=== PATIENT | male | born 1955 | race Caucasian/White ===

== ENCOUNTER 2016-08-12 16:18 | Emergency (ER) | payer OTHER ==
[2016-08-12 16:45] VITALS: BP 149/84
[2016-08-12] MEDS ORDERED: Ketorolac INJ* 60 MG/2 ML VIAL IM ONE (17:59)
--- NOTE | 2016-08-12 18:16 | RAD ---
Indication: Elbow pain and stiffness. 4 views of the right elbow demonstrates anterior fat pad sign suggestive of a joint effusion. No definite fracture is identified although visualization is suboptimal. IMPRESSION: Suboptimal positioning however joint effusion is noted. No definite fractures identified.
[2016-08-12] MEDS ORDERED: Cephalexin CAP* 500 MG PO ONE (18:41)
--- NOTE | 2016-08-12 19:11 | UC ---
Elbow Pain - HPI Summary HPI Summary: THREE DAYS OF TENDERNESS WARMTH AND SWELLING OF RIGHT ELBOW. ELBOW HAD BEEN PROPPED UP LAST WEEK DURING COLONOSCOPY, BUT HAD ALSO BEEN WORKING HEAVILY THIS WEEK WITH POWER TOOLS. ION KNOWN TRAUMA. NO HISTORY OF GOUT. - History of Current Complaint Chief Complaint: UCUpperExtremity Stated Complaint: ELBOW PAIN Time Seen by Provider: 08/12/16 16:52 Hx Obtained From: Patient Onset/Duration: Days Severity Initially: Mild Severity Currently: Moderate Pain Intensity: 0 Pain Scale Used: 0-10 Numeric Location Of Pain: Is Discrete @ - RIGHT ELBOW Character: Dull, Aching, Stiffness Aggravating Factor(s): Movement Alleviating Factor(s): Rest, Ice, Immobilization Associated Signs And Symptoms: Positive: Swelling, Redness, Fever. Negative: Bruising, Weakness, Numbness/Tingling - Allergies/Home Medications Allergies/Adverse Reactions: Allergies Allergy/AdvReac Type Severity Reaction Status Date / Time No Known Allergies Allergy Verified 08/12/16 16:45 PMH/Surg Hx/FS Hx/Imm Hx Previously Healthy: Yes Endocrine History Of: Denies: Diabetes Cardiovascular History Of: Reports: Hypertension - ON MEDS Denies: Pacemaker/ICD - Surgical History Surgical History: None - Family History Known Family History: Negative: Diabetes, Other - NO HISTORY OF GOUT - Social History Occupation: Employed Full-time Lives: With Family Alcohol Use: Rare Substance Use Type: None Smoking Status (MU): Never Smoked Tobacco Review of Systems Constitutional: Fever Skin: Negative Eyes: Negative ENT: Negative Respiratory: Negative Cardiovascular: Negative Gastrointestinal: Negative Genitourinary: Negative Motor: Negative Neurovascular: Negative Musculoskeletal: Arthralgia, Edema - MILD RIGHT ELBOW, Myalgia, Other: - WARMTH RIGHT ELBOW Neurological: Negative Psychological: Negative All Other Systems Reviewed And Are Negative: Yes Physical Exam Triage Information Reviewed: Yes Appearance: Well-Appearing, Well-Nourished, Pain Distress - MILD Vital Signs: Initial Vital Signs Temp 100.5 F 08/12/16 16:40 Pulse 91 08/12/16 16:40 Resp 18 08/12/16 16:40 BP 149/84 08/12/16 16:40 Pulse Ox 96 08/12/16 16:40 Vital Signs Reviewed: Yes Eye Exam: Normal ENT Exam: Normal ENT: Positive: Normal ENT inspection, Hearing grossly normal, Pharynx normal, TMs normal Dental Exam: Normal Neck exam: Normal Neck: Positive: Supple, Nontender, No Lymphadenopathy Respiratory Exam: Normal Respiratory: Positive: Chest non-tender, Lungs clear, Normal breath sounds, No respiratory distress, No accessory muscle use Cardiovascular Exam: Normal Cardiovascular: Positive: RRR, No Murmur Abdominal Exam: Normal Musculoskeletal Exam: Normal Musculoskeletal: Positive: Strength Limited @ - RIGHT ELBOW, ROM Limited @ - RIGHT ELBOW, Edema @ - MILD RIGHT ELBOW, Other: - WARMTH RIGHT ELBOW; NO TENDERNESS OR SWELLING OF BURSA Neurological Exam: Normal Psychological Exam: Normal Psychological: Positive: Normal Response To Family Skin Exam: Normal Elbow Pain Course/Dx - Differential Dx/Diagnosis Differential Diagnosis/HQI/PQRI: Bursitis, Cellulitis, Fracture (Closed), Joint Effusion, Other - SEPTIC JOINT Provider Diagnoses: RIGHT ELBOW JOINT EFFUSION Discharge - Discharge Plan Condition: Stable Disposition: HOME Prescriptions: Cephalexin CAP* [Keflex CAP*] 500 mg PO QID #40 cap Patient Education Materials: Swollen Joint (ED) Forms: *Work Release Referrals: Kristofer Lane MD [Medical Doctor] - Evens Paul MD [Primary Care Provider] - Images Front/Back of Body, Lg ([place]): 1 - TENDER HERE 2 - TENDER HERE
== END 2016-08-12 18:57 | disposition home or self-care (01) ==
LOC: UCEAST 16:18
DX: M25.421 Effusion, right elbow (principal); I10 Essential (primary) hypertension
CPT/HCPCS: 99213; A9270-GY; G0463; J1885

== ENCOUNTER 2017-07-04 07:30 | Emergency (ER) | payer OTHER ==
[2017-07-04 08:24] LABS: ABS Basophils 0.2 10^3/ul (0-0.2); ABS Eosinophils 0.2 10^3/ul (0-0.6); ABS Lymphocytes 1.6 10^3/ul (1.0-4.8); ABS Monocytes 1.2 10^3/ul (0-0.8); ABS Neutrophils 9.9 10^3/ul (1.5-7.7); ABS Nucleated RBC 0 10^3/ul; Eosinophil % 1.9 % (0-6); Hematocrit 40 % (42-52); Hemoglobin 13.7 g/dl (14.0-18.0); Lymphocyte % 11.9 % (25-47); Mean Corpuscular HGB Conc 35 g/dl (31-36); Mean Corpuscular Hemoglobin 29 pg (27-31); Mean Corpuscular Volume 83 fL (80-94); Mean Platelet Volume 8 um3 (7.4-10.4); Nucleated Red Blood Cells % 0; Platelet Count 263 10^3/ul (150-450); Red Cell Distribution Width 14 % (10.5-15); White Blood Count 13.1 10^3/ul (3.5-10.8)
[2017-07-04 08:44] LABS: EGFR Non-African American 69.8 (>60)
--- OUTSIDE RECORDS SUMMARY | 2017-07-04 09:04 | XMS REPORT ---
:1955 External Reference #:[id number] Author Organization [facility] Address [address] [place] [address] Phone [phone] Care Team Providers Name Role Phone Evens Paul MD Care Team Information Chief Ii Dispatcher Unavailable Evens Paul MD Primary Care Physician Unavailable Payers Type Date Identification Numbers Payment Provider Subscriber Commercial Effective: Policy Number: [id number] [employer] Mercedes 2010 PayID: [id number] [place] [address] Problems Date Description Provider Status Onset: 02/12/2012 Adult health examination Evens Paul M.D. Active Onset: 03/25/2012 Benign essential hypertension Evens Paul M.D. Active Onset: 04/23/2012 Cellulitis and abscess of buttock Evens Paul M.D. Active Onset: 11/06/2012 Acute maxillary sinusitis John Crain M.D. Active Onset: 05/08/2013 Eruption Evens Paul M.D. Active Onset: 08/10/2014 Arthralgia of the ankle and/or foot Evens Paul M.D. Active Onset: 08/30/2015 Essential hypertension Evens Paul M.D. Active Onset: 03/08/2017 Cellulitis of periorbital region Evens Paul M.D. 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 three a day x 5 days Patanol 11/20 Active Solution 0.1% 5unit 1 drop in s both eyes Liset, twice a FOOD SERVICE CASHIER day as needed Viagra 11/20 Active Tablets 50mg 14tab 1 by mouth F52.21 s 45 minutes Liset, prior to [employer]OD SERVICE CASHIER sexual relations Sample Simvastatin 09/11 Active Tablets 20mg 90tab Take 1 Evens Pedraza s Tablet By Beverly Mouth M.D. Every Day Desoximetasone 08/10 Active Cream 0.25% 60gm use as Evens Pedraza directed josep Paul M.D. affected areas. Montelukast 06/15 Active Tablets 10mg 90tab take 1 Evens Pedraza Sodium s tablet by Beverly mouth M.D. every day Hydrochlorothiazi 02/11 Active Capsules 12.5mg 90cap take one Evens Pedraza de s capsule by Beverly mouth M.D. every day Proair HFA 08/29 Active Aerosol 108(90Bas 25.5g use 2 /2010 e) m puffs Sahil, mcg/Act every 4 [employer] SERVICE C[employer]IER hours as needed Centrum Ultra 00/00 Active Tablets daily Unknown Mens /0000 Keflex 03/08 Hx Capsules 500mg 30cap 1 by mouth Evens Pedraza /2016 s tid Aretha Paul M.D. 06/14 Amoxicillin 12/17 Hx Tablets 500mg 20tab 1 by mouth Evens Pedraza s twice a Beverly, - day M.D. 03/05 Amoxicillin 10/03 Hx Tablets 500mg 20tab 1 by mouth Evens Pedraza s twice a Beverly, - day M.D. 10/02 Doxycycline 08/10 Hx Capsules 100mg 20cap use 1bid Evens Ba s Aretha Paul M.D. 06/06 Amoxicillin 12/29 Hx Tablets 875mg 20tab 1 by mouth 461.9 Wallace Soto, /2013 s twice a M.D. - day for 10 Topicort 06/19 Hx Cream 0.25% 45uni rub in Evens Pedraza /2013 ts sparingly Beverly, - bid prn M.D. 08/09 Doxycycline 06/19 Hx Capsules 100mg 42cap use 1bid Evens Ba /2013 s Aretha Paul M.D. 12/29 Triamcinolone 05/08 Hx Cream 0.1% 15gm apply Q.D Evens Pedraza Acetonide Aretha PaulDRadha 06/19 Ceftin 02/06 Hx Tablets 500mg 20tab 1 po bid Evens Pedraza /2012 Aretha Farias M.D. 06/19 Bactroban 02/06 Hx Cream 2% 15uni use as Evens Pedraza /2012 ts directed Beverly, - bid M.D. 06/19 Amoxicillin 11/06 Hx Tablets 875mg 14tab 1 po bid 461.0 John Tolbert /2012 Aretha Mccauley M.D. 11/13 Doxycycline 05/13 Hx Tablets 100mg 28tab 1 po bid x Evens Ba /2012 s 14 days Aretha Paul M.D. 11/06 Naprosyn 05/06 Hx Tablets 500mg 20tab 1 bid with Evens Pedraza /2012 s food Aretha Paul M.D. 06/19 Doxycycline 04/23 Hx Capsules 100mg 20cap use 1bid Evens Ba /2012 s Aretha Paul M.D. 05/06 Proair HFA 05/10 Hx Aerosol 108(90Bas 2unit 2 puffs Evens Pedraza e) mcg/ac s q4h prn Aretha PaulDRadha 02/11 Proair HFA 05/10 Hx Aerosol 108(90Bas 2unit Use 2 Evens Pedraza e) mcg/ac s Puffs Beverly, - Every 4 M.DRadha 11/12 Hours Needed Proair HFA 09/29 Hx Aerosol 108mcg/Ac 2unit 2 puffs Evens Pedraza t s q4h prn Aretha Paul M.D. 08/29 Claritin 09/29 Hx Capsules 10mg 30cap 1 po qd [facility] /2009 Singulair 09/29 Hx Tablets 10mg 30tab take 1 Wallace Soto, s tablet by [place].Fatmata - mouth 08/09 every day Augmentin 06/12 Hx Tablets 500mg 20tab 1 po bid 461.9 Maggy s with food Sahil, - x 10 days [employer]OD SERVICE [employer]IER 09/29 Duricef 02/10 Hx Capsules 500mg 20cap 1 PO bid 709.8 John Tolbert /2006 Aretha Mccauley M.D. 02/20 Amoxicillin 04/24 Hx Capsules 250mg 30cap 1 po tid Evens Pedraza /2006 s Aretha Paul M.D. 02/10 Albuterol Inhaler 03/20 Hx 1unit 2 puffs Evens Pedraza s qid prAertha Gomes M.D. 09/29 Augmentin XR 06/14 Hx 1000mg as directed Domingo, - FOOD SERVICE CASHIER-C 03/20 Singulair 06/14 Hx 10mg qd Tamanna R Domingo, - FOOD SERVICE CASHIER-C 03/20 Clarinex 06/14 Hx 5mg 30uni 1 qd prn Tamanna R s[address], - FOOD SERVICE CASHIER-C 03/20 medicaid auth #[id number] Rhinocort Aqua 06/14 Hx Inhaler 1unit 1 spray in Tamanna s [address], - nostril qd [employer] SERVICE CASHIER-C 03/20 Robitussin ac 06/14 Hx Liq 4Oz 2-1 tsp Tamanna po q4hs Domingo, - prn cough FOOD SERVICE CASHIER-C 03/05 Doxycycline 05/31 Hx 100mg 20uni 1 PO bid Víctor Benedict /1998 Aretha Adam M.D. 06/10 Immunizations CPT Code Status Date Vaccine Lot # [id number] Given 08/30/2015 Zostivax [id number] Given 08/30/2015 Tdap Tetanus, W Pertussis [id number] Given 03/03/2013 DO Not Use Split Influenza Virus Vaccine [id number] Given 05/06/2012 DO Not Use Split Influenza Virus Vaccine [id number] Given 03/05/2006 Tetanus And Diptheria Adult Preservative Free [id number] >7Yrs Vital Signs Date Vital Result Comment 06/14/2017 BP Systolic 120 mmHg BP Diastolic 68 mmHg Heart Rate 68 /min Body Temperature 98.2 F Respiratory Rate 18 /min Height 67 inches 5'7" Weight 205.00 lb BMI (Body Mass Index) 32.1 kg/m2 03/08/2017 BP Systolic 148 mmHg BP Diastolic 82 mmHg Heart Rate 84 /min Body Temperature 98.6 F Height 67 inches 5'7" Weight 209.00 lb BMI (Body Mass Index) 32.7 kg/m2 03/05/2017 BP Systolic 150 mmHg BP Diastolic 82 mmHg Heart Rate 72 /min Body Temperature 98.6 F Height 67 inches 5'7" Weight 209.00 lb BMI (Body Mass Index) 32.7 kg/m2 12/17/2016 BP Systolic 120 mmHg BP Diastolic 80 mmHg Heart Rate 76 /min Body Temperature 99.0 F Respiratory Rate 18 /min Height 67 inches 5'7" Weight 207.00 lb BMI (Body Mass Index) 32.4 kg/m2 11/20/2016 BP Systolic 142 mmHg BP Diastolic 86 mmHg Heart Rate 76 /min Body Temperature 99.0 F Height 67 inches 5'7" Weight 209.00 lb BMI (Body Mass Index) 32.7 kg/m2 10/02/2016 BP Systolic 144 mmHg BP Diastolic 80 mmHg Heart Rate 72 /min Body Temperature 98.6 F Respiratory Rate 18 /min Height 67 inches 5'7" Weight 209.00 lb BMI (Body Mass Index) 32.7 kg/m2 10/04/2015 BP Systolic 162 mmHg BP Diastolic 80 mmHg Heart Rate 82 /min Body Temperature 98.4 F Respiratory Rate 18 /min Height 67 inches 5'7" Weight 216.00 lb BMI (Body Mass Index) 33.8 kg/m2 08/30/2015 BP Systolic 140 mmHg BP Diastolic 80 mmHg Heart Rate 72 /min Body Temperature 97.9 F Respiratory Rate 18 /min Height 67 inches 5'7" Weight 214.00 lb BMI (Body Mass Index) 33.5 kg/m2 06/06/2015 BP Systolic 140 mmHg BP Diastolic 80 mmHg Heart Rate 68 /min Body Temperature 99.0 F Respiratory Rate 18 /min Height 67 inches 5'7" Weight 212.00 lb BMI (Body Mass Index) 33.2 kg/m2 08/10/2014 BP Systolic 132 mmHg BP Diastolic 70 mmHg Heart Rate 90 /min Body Temperature 96.7 F Respiratory Rate 16 /min Height 67 inches 5'7" Weight 211.25 lb BMI (Body Mass Index) 33.1 kg/m2 12/29/2013 BP Systolic 160 mmHg BP Diastolic 92 mmHg Heart Rate 90 /min Body Temperature 97.7 F Respiratory Rate 15 /min Height 67.75 inches 5'7.75" Weight 209.00 lb BMI (Body Mass Index) 32.0 kg/m2 06/19/2013 BP Systolic 160 mmHg BP Diastolic 90 mmHg Heart Rate 82 /min Body Temperature 98.2 F Respiratory Rate 18 /min Height 67.75 inches 5'7.75" Weight 215.00 lb BMI (Body Mass Index) 32.9 kg/m2 05/08/2013 BP Systolic 142 mmHg BP Diastolic 88 mmHg Heart Rate 84 /min Body Temperature 97.4 F Respiratory Rate 18 /min Height 67.75 inches 5'7.75" Weight 214.00 lb BMI (Body Mass Index) 32.8 kg/m2 03/03/2013 BP Systolic 140 mmHg BP Diastolic 80 mmHg Heart Rate 84 /min Body Temperature 98.2 F Respiratory Rate 16 /min Height 67.75 inches 5'7.75" Weight 210.00 lb BMI (Body Mass Index) 32.2 kg/m2 Right Visual Acuity Distance 20/20 with corrective lenses Left Visual Acuity Distance 20/20 with corrective lenses 02/06/2013 BP Systolic 146 mmHg BP Diastolic 70 mmHg Heart Rate 80 /min Body Temperature 98.4 F Respiratory Rate 16 /min Height 67.75 inches 5'7.75" Weight 209.00 lb BMI (Body Mass Index) 32.0 kg/m2 11/06/2012 BP Systolic 140 mmHg BP Diastolic 76 mmHg Heart Rate 84 /min Body Temperature 99.2 F Respiratory Rate 16 /min O2 % BldC Oximetry 98 % Height 67.75 inches 5'7.75" Weight 208.00 lb BMI (Body Mass Index) 31.9 kg/m2 05/06/2012 BP Systolic 164 mmHg BP Diastolic 90 mmHg Heart Rate 96 /min Body Temperature 99.5 F Height 67.75 inches 5'7.75" Weight 205.00 lb BMI (Body Mass Index) 31.4 kg/m2 04/23/2012 BP Systolic 128 mmHg BP Diastolic 84 mmHg Heart Rate 90 /min Body Temperature 99.2 F Height 67.75 inches 5'7.75" Weight 207.00 lb BMI (Body Mass Index) 31.7 kg/m2 03/25/2012 BP Systolic 130 mmHg BP Diastolic 70 mmHg Heart Rate 84 /min Body Temperature 98.8 F Height 67.75 inches 5'7.75" Weight 210.00 lb BMI (Body Mass Index) 32.2 kg/m2 02/12/2012 BP Systolic 160 mmHg BP Diastolic 100 mmHg Heart Rate 76 /min Body Temperature 97.2 F Height 67.75 inches 5'7.75" Weight 212.00 lb BMI (Body Mass Index) 32.5 kg/m2 08/29/2010 BP Systolic 140 mmHg BP Diastolic 86 mmHg Heart Rate 84 /min Height 67.75 inches 5'7.75" Weight 222.00 lb BMI (Body Mass Index) 34.0 kg/m2 08/10/2009 BP Systolic 150 mmHg BP Diastolic 84 mmHg Heart Rate 88 /min Height 67.75 inches 5'7.75" Weight 212.00 lb BMI (Body Mass Index) 32.5 kg/m2 01/18/2009 BP Systolic 160 mmHg BP Diastolic 82 mmHg Heart Rate 84 /min Height 67.75 inches 5'7.75" Weight 213.00 lb BMI (Body Mass Index) 32.6 kg/m2 09/29/2008 BP Systolic 142 mmHg BP Diastolic 82 mmHg Heart Rate 72 /min Height 67.75 inches 5'7.75" Weight 218.00 lb BMI (Body Mass Index) 33.4 kg/m2 06/12/2007 BP Systolic 126 mmHg BP Diastolic 80 mmHg Heart Rate 78 /min Body Temperature 98.9 F Respiratory Rate 14 /min Height 67.75 inches 5'7.75" Weight 222.00 lb BMI (Body Mass Index) 34.0 kg/m2 02/12/2007 BP Systolic 150 mmHg BP Diastolic 80 mmHg Heart Rate 76 /min Body Temperature 98.5 F Height 67.75 inches 5'7.75" Weight 217.00 lb BMI (Body Mass Index) 33.2 kg/m2 02/10/2007 BP Systolic 144 mmHg BP Diastolic 70 mmHg Heart Rate 84 /min Body Temperature 98.2 F Height 67.75 inches 5'7.75" Weight 217.00 lb BMI (Body Mass Index) 33.2 kg/m2 04/24/2006 BP Systolic 148 mmHg BP Diastolic 88 mmHg Heart Rate 84 /min Body Temperature 99.1 F Height 67.75 inches 5'7.75" Weight 217.00 lb BMI (Body Mass Index) 33.2 kg/m2 03/05/2006 BP Systolic 132 mmHg BP Diastolic 80 mmHg Heart Rate 78 /min Body Temperature 98.1 F Height 67.75 inches 5'7.75" Weight 214.00 lb BMI (Body Mass Index) 32.8 kg/m2 12/11/2005 BP Systolic 120 mmHg BP Diastolic 80 mmHg Heart Rate 74 /min Respiratory Rate 15 /min 03/20/2004 BP Systolic 138 mmHg BP Diastolic 84 mmHg Heart Rate 132 /min Body Temperature 98.9 F Weight 198.00 lb 06/14/2003 BP Systolic 138 mmHg BP Diastolic 88 mmHg Heart Rate 70 /min Body Temperature 97.6 F Weight 205.00 lb 05/31/1998 BP Systolic 120 mmHg BP Diastolic 86 mmHg Body Temperature 98.2 F Weight 200.00 lb Results Test Date Test Result H/L Range Note Laboratory test finding 03/08/2017 Wound SEE RESULT BELOW 1 Culture/Sensi Laboratory test finding 10/02/2016 HCV Antibody 0.1 s/coratio 0.0-0.9 2 , 3 Comprehensive Metabolic 10/02/2016 Sodium 138 mEq/L 134-149 Prof Potassium 4.1 mEq/L 3.6-5.5 Chloride 98 mEq/L 94-112 Carbon Dioxide 28 mEq/L 21-32 Glucose 105 mg/dL 70-105 BUN 15 mg/dL 6-26 Creatinine 1.1 mg/dL 0.6-1.4 BUN/Creat Ratio 13.6 CALC 8.0-36.0 Calcium 9.1 mg/dL 8.6-10.2 Total Protein 6.5 g/dL 6.4-8.3 Albumin 4.4 g/dL 3.8-5.5 Globulin 2.1 g/dL 2.0-4.8 A/G Ratio 2.1 CALC 0.6-2.3 Alk. Phosphatase 60 U/L 22-95 Alt (SGPT) 26 U/L 7-35 Ast (Sgot) 27 U/L 5-34 Total Bilirubin 1.8 mg/dL High 0.2-1.3 4 GFR Non- >60 ml/min/1.73m^ >=60 GFR >60 ml/min/1.73m^ >=60 Lipid Profile 10/02/2016 Cholesterol 138 mg/dL 120-200 Triglycerides 78 mg/dL 30-200 HDL Cholesterol 41 mg/dL 30-70 LDL (Calculated) 81 CALC 0-129 VLDL Cholesterol 16 mg/dL 0-50 HDL Risk Factor 3.4 CALC 0.0-4.4 Complete Blood Count 10/02/2016 WBC 6.1 x10^3/UL 3.6-9.6 RBC 4.93 x10^6/UL 3.90-5.70 HGB 14.5 g/dL 12.1-17.2 HCT 43 % 36-50 MCV 87.0 fL 82.2-97.4 MCH 29.4 pg 27.6-33.3 MCHC 33.7 g/dL 33.0-35.5 RDW 14.2 % High 11.6-13.7 PLT 190 x10^3/UL 150-400 MPV 7.4 fL 7.4-10.4 Gran # 4.1 x10^3/UL 1.5-7.2 Lymph# 1.7 x10^3/UL 0.7-4.9 Hamlin# 0.3 x10^3/UL 0.1-0.9 Gran % 66.0 % 42.2-75.2 Lymph % 28.6 % 20.5-51.1 [place]lin% 5.4 % 1.7-9.3 Laboratory test finding 10/02/2016 PSA 1.0 ng/mL 0.0-4.0 Uric Acid 8.9 mg/dL 2.5-9.2 Lipid Profile 11/23/2015 Cholesterol 149 mg/dL 120-200 Triglycerides 93 mg/dL 30-200 HDL Cholesterol 42 mg/dL 30-70 LDL (Calculated) 88 CALC 0-129 VLDL Cholesterol 19 mg/dL 0-50 HDL Risk Factor 3.5 CALC 0.0-4.4 Hepatic 11/23/2015 Total Protein 6.9 g/dL 6.4-8.3 Albumin 4.5 g/dL 3.8-5.5 Globulin 2.4 g/dL 2.0-4.8 A/G Ratio 1.9 CALC 0.6-2.3 Alk. Phosphatase 59 U/L 22-95 Alt (SGPT) 30 U/L 7-35 Ast (Sgot) 26 U/L 5-34 Total Bilirubin 2.1 mg/dL High 0.2-1.3 5 Direct Bilirubn 0.6 mg/dL 0.0-0.6 Indirect Bilirubin 1.50 mg/dL High 0.10-1.00 Ua - Non Micro (a) 08/30/2015 Appearance clear Color yellow Glucose, Urine (a/[facility]/CTX) neg Bilirubin neg Ketones neg SP Grav 1.015 Blood neg PH 7.5 Protein neg Urobil 0.2 Nitrite neg Leukocytes ([facility]/Centrex) neg Comprehensive Metabolic Prof 08/30/2015 Sodium 139 mEq/L 134-149 Potassium 4.1 mEq/L 3.6-5.5 Chloride 102 mEq/L 94-112 Carbon Dioxide 27 mEq/L 21-32 Glucose 115 mg/dL High 70-105 6 BUN 12 mg/dL 6-26 Creatinine 1.0 mg/dL 0.6-1.4 BUN/Creat Ratio 12.0 CALC 8.0-36.0 Calcium 9.5 mg/dL 8.6-10.2 Total Protein 7.1 g/dL 6.4-8.3 Albumin 4.4 g/dL 3.8-5.5 Globulin 2.7 g/dL 2.0-4.8 A/G Ratio 1.6 CALC 0.6-2.3 Alk. Phosphatase 61 U/L 22-95 Alt (SGPT) 28 U/L 7-35 Ast (Sgot) 25 U/L 5-34 Total Bilirubin 1.3 mg/dL 0.2-1.3 GFR Non- >60 ml/min/1.73m^ >=60 GFR >60 ml/min/1.73m^ >=60 Lipid Profile 08/30/2015 Cholesterol 226 mg/dL High 120-200 Triglycerides 148 mg/dL 30-200 HDL Cholesterol 34 mg/dL 30-70 LDL (Calculated) 162 CALC High 0-129 VLDL Cholesterol 30 mg/dL 0-50 HDL Risk Factor 6.6 CALC High 0.0-4.4 Laboratory test finding 06/09/2015 Uric Acid 8.3 mg/dL 2.5-9.2 Rheumatoid Arthritis 06/09/2015 Ra Latex Turbid. 9.1 IU/mL 0.0-13.9 7 Factor ([facility]) Laboratory test finding 06/09/2015 Antinuclear Antibodies, Negative 7, 8 Ifa Laboratory test finding 06/09/2015 Hla B 27 Disease Negative 7, 9 Association CCP Abs Igg/Iga 06/09/2015 CCP Antibodies IgG/IgA 2 units 0-19 7, 10 CBC Electronic (a) 06/06/2015 WBC 9.5 3.6-9.6 RBC 5.17 3.90-5.70 Hemoglobin ([facility]/CTX) 15.1 g/dL 12.1 - 17.2 Hematocrit ([facility]ma/CMC/CTX) 45.6 % 36.1 - 50.3 Platelets 206 10^3/ul 150-400 Lymph% 23.2 % 17.0-48.0 Mixed% 5.4 Neutrophils % 71.4 Mean Corpuscular Vol 88 82.2-97.4 Mean Corpuscular Hemoglobin 29.2 27.6-33.3 Mean Corpuscular Hemo Concen 33.0 32.0-36.0 RDW 13.4 11.6-13.7 Mean Platelet Volume 6.8 5.5-11.0 Laboratory test finding 06/06/2015 C-Reactive Protein, Quant 47.0 mg/L High 0.0-4.9 11 Laboratory test finding 06/06/2015 Sedimentation Rate 21mm Lyme, Western Blot, 06/06/2015 IgG P93 Ab. Present 11 Serum IgG P66 Ab. Absent 11 IgG P58 Ab. Absent 11 IgG P45 Ab. Absent 11 IgG P41 Ab. Absent 11 IgG P39 Ab. Present 11 IgG P30 Ab. Absent 11 IgG P28 Ab. Absent 11 IgG P23 Ab. Absent 11 IgG P18 Ab. Absent 11 Lyme IgG WB Interp. Negative 11, 12 IgM P41 Ab. Absent 11 IgM P39 Ab. Absent 11 IgM P23 Ab. Absent 11 Lyme IgM WB Interp. Negative 11, 13 Comprehensive Metabolic Prof 08/10/2014 Sodium 137 mEq/L 134-149 Potassium 4.2 mEq/L 3.6-5.5 Chloride 100 mEq/L 94-112 Carbon Dioxide 28 mEq/L 21-32 Glucose 108 mg/dL High 70-105 14 BUN 12 mg/dL 6-26 Creatinine 1.1 mg/dL 0.6-1.4 BUN/Creat Ratio 10.9 CALC 8.0-36.0 Calcium 9.5 mg/dL 8.6-10.2 Total Protein 6.7 g/dL 6.4-8.3 Albumin 4.3 g/dL 3.8-5.5 Globulin 2.4 g/dL 2.0-4.8 A/G Ratio 1.8 CALC 0.6-2.3 Alk. Phosphatase 59 U/L 22-95 Alt (SGPT) 28 U/L 7-35 Ast (Sgot) 21 U/L 5-34 Total Bilirubin 1.1 mg/dL 0.2-1.3 Ua - Non Micro ([facility]) 08/10/2014 Appearance CLEAR Color YELLOW Glucose, Urine ([facility]/CTX) NEG Bilirubin NEG Ketones NEG SP Grav 1.015 Blood NEG PH 8.0 Protein NEG Urobil 0.2 Nitrite NEG Leukocytes (a/[facility]/Centrex) NEG Lipid Profile 08/10/2014 Cholesterol 203 mg/dL High 120-200 Triglycerides 137 mg/dL 30-200 HDL Cholesterol 35 mg/dL 30-70 LDL (Calculated) 141 CALC High 0-129 VLDL Cholesterol 27 mg/dL 0-50 HDL Risk Factor 5.8 CALC High 0.0-4.4 Complete Blood Count 08/10/2014 WBC 6.9 x10^3/UL 3.6-9.6 RBC 5.09 x10^6/UL 3.90-5.70 HGB 14.6 g/dL 12.1-17.2 HCT 44 % 36-50 MCV 87.0 fL 82.2-97.4 MCH 28.7 pg 27.6-33.3 MCHC 33.0 g/dL 33.0-35.5 RDW 13.4 % 11.6-13.7 PLT 227 x10^3/UL 150-400 MPV 7.4 fL 7.4-10.4 Gran # 4.8 x10^3/UL 1.5-7.2 Lymph# 1.6 x10^3/UL 0.7-4.9 Hamlin# 0.5 x10^3/UL 0.1-0.9 Gran % 68.0 % 42.2-75.2 Lymph % 23.4 % 20.5-51.1 Hamlin% 8.6 % 1.7-9.3 Laboratory test finding 06/19/2013 C-Reactive Protein 1.3 mg/L 0.0-5.0 15 Sedimentation Rate 2 MM/HR 0-15 15 Lyme Western Blot Ser 06/19/2013 IgG P93 Ab. Absent 15 IgG P66 Ab. Absent 15 IgG P58 Ab. Absent 15 IgG P45 Ab. Absent 15 IgG P41 Ab. Present 15 IgG P39 Ab. Absent 15 IgG P30 Ab. Absent 15 IgG P28 Ab. Absent 15 IgG P23 Ab. Absent 15 IgG P18 Ab. Absent 15 Lyme IgG WB Interp. Negative 15, 16 IgM P41 Ab. Absent 15 IgM P39 Ab. Absent 15 IgM P23 Ab. Present 15 Lyme IgM WB Interp. Negative 15, 17 Lyme Igg/M W/[facility] 06/19/2013 Lyme IgG/IgM Ab <0.91 index 0.00- 0.90 15, 18 Lyme Disease Ab, Quant, IgM <0.91 index 0.00-0.90 15, 19 CBC Electronic ([facility]) 03/03/2013 WBC 6.0 3.6-9.6 RBC 4.65 3.90-5.70 Hemoglobin ([facility]/CTX) 13.8 g/dL 12.1 - 17.2 Hematocrit (a/[facility]/CTX) 40.4 % 36.1 - 50.3 Platelets 190 10^3/ul 150-400 Lymph% 27.0 20.5-51.1 Mixed% 5.4 Neutrophils % 67.6 Mean Corpuscular Vol 87 82.2-97.4 Mean Corpuscular Hemoglobin 29.7 27.6-33.3 Mean Corpuscular Hemo Concen 34.2 32.0-36.0 RDW 12.1 11.6-13.7 Mean Platelet Volume 7.1 6.5-11.0 Ua - Micro ([facility]) 03/03/2013 Appearance yellow Color clear Glucose neg Bilirubin neg Ketones neg SP Grav 1.015 Blood trace-lysed PH 7.0 Protein neg Urobil 0.2 Nitrite neg Leukocytes ([facility]) neg Hyaline - /Lpf Granular - /Lpf WBC ([facility]) - RBC 0-1 Mucus - /Lpf Epith - /Lpf Bacteria - /Hpf Amorphous - /Lpf Crystals, Fluid ([facility]/CTX) - Z#Comments - Comprehensive Metabolic Prof 03/03/2013 Albumin 4.4 g/dL 3.8-5.5 Alk. Phos. 71 U/L 22-95 Alt (SGPT) 23 U/L 10-40 Ast (Sgot) 24 U/L 5-34 BUN 16 mg/dL 6-26 Calcium 9.5 mg/dL 8.6-10.2 Chloride 102 mEq/L 94-112 Creatinine 1.1 mg/dL 0.6-1.4 Carbon Dioxide 26 mEq/L 21-32 Glucose 105 mg/dL 70-105 Sodium 140 mEq/L 134-149 Total Bilirubin 1.4 mg/dL High 0.2-1.3 20 Total Protein 6.7 g/dL 6.3-8.1 Potassium 4.3 mEq/L 3.6-5.5 Globulin 2.3 g/dL 2.0-4.8 A/G Ratio 1.9 Calc 0.6-2.3 BUN/Creat Ratio 14.1 Calc 8.0-36.0 Lipid Profile 03/03/2013 Cholesterol 212 mg/dL High 120-200 HDL 36 mg/dL 30-70 Triglycerides 108 mg/dL 30-200 HDL Risk Factor 6.0 CALC High 0.0-4.4 LDL (Calculated) 155 CALC High 0-129 VLDL (Calculated) 22 mg/dL 0-50 Laboratory test finding 03/03/2013 PSA 0.60 ng/mL 0.00-4.00 Lyme Igg/M W/[facility] 05/06/2012 Lyme IgG/IgM Ab 4.66 index High 0.00- 0.90 21 Lyme Ab Interp.,Eia Positive Lyme Disease Ab, Quant, IgM 7.07 index High 0.00-0.90 22 Lyme Ab IgM Interp., Eia Positive Lyme Western Blot Ser 05/06/2012 IgG P93 Ab. Absent IgG P66 Ab. Absent IgG P58 Ab. Absent IgG P45 Ab. Absent IgG P41 Ab. Present IgG P39 Ab. Absent IgG P30 Ab. Absent IgG P28 Ab. Absent IgG P23 Ab. Absent IgG P18 Ab. Absent Lyme IgG WB Interp. Negative 23 IgM P41 Ab. Present IgM P39 Ab. Absent IgM P23 Ab. Present Lyme IgM WB Interp. Positive 24 Lipid Profile 02/12/2012 Cholesterol 202 mg/dL High 120-200 HDL 40 mg/dL 30-70 Triglycerides 94 mg/dL 30-200 HDL Risk Factor 5.1 CALC High 0.0-4.4 LDL (Calculated) 144 CALC High 0-129 VLDL (Calculated) 19 mg/dL 0-50 Laboratory test finding 02/12/2012 Uric Acid 8.0 mg/dL 2.5-9.2 Ua - Micro ([facility]) 02/12/2012 Appearance CLEAR Color YELLOW Glucose NEG Bilirubin NEG Ketones NEG SP Grav 1.010 Blood SMALL PH 7.0 Protein NEG Urobil 0.2 Nitrite NEG Leukocytes ([facility]) NEG Hyaline - /Lpf Granular - /Lpf WBC (a,[facility]) 0-1 RBC 1-3 Mucus - /Lpf Epith - /Lpf Bacteria - /Hpf Amorphous - /Lpf Crystals, Fluid (a/[facility]/CTX) - Z#Comments - CBC Electronic ([facility]) 02/12/2012 WBC 7.0 3.6-9.6 RBC 5.04 3.90-5.70 Hemoglobin ([facility]/CTX) 14.6 g/dL 12.1 - 17.2 Hematocrit (a/[facility]/CTX) 44.2 % 36.1 - 50.3 Platelets 204 10^3/ul 150-400 Lymph% 25.5 20.5-51.1 Mixed% 5.6 Neutrophils % 68.9 Mean Corpuscular Vol 88 82.2-97.4 Mean Corpuscular Hemoglobin 28.9 27.6-33.3 Mean Corpuscular Hemo Concen 32.9 32.0-36.0 RDW 11.7 11.6-13.7 Mean Platelet Volume 7.0 6.5-11.0 Comprehensive Metabolic Prof 02/12/2012 Albumin 4.4 g/dL 3.8-5.5 Alk. Phos. 69 U/L 22-95 Alt (SGPT) 21 U/L 10-40 Ast (Sgot) 19 U/L 5-34 BUN 16 mg/dL 6-26 Calcium 9.4 mg/dL 8.6-10.2 Chloride 98 mEq/L 94-112 Creatinine 1.1 mg/dL 0.6-1.4 Carbon Dioxide 23 mEq/L 21-32 Glucose 96 mg/dL 70-105 Sodium 136 mEq/L 134-149 Total Bilirubin 1.5 mg/dL High 0.2-1.3 25 Total Protein 6.6 g/dL 6.3-8.1 Potassium 4.3 mEq/L 3.6-5.5 Globulin 2.2 g/dL 2.0-4.8 A/G Ratio 2.1 Calc 0.6-2.2 BUN/Creat Ratio 14.9 Calc 8.0-36.0 Ua - Non Micro ([facility]) 01/18/2009 Appearance CLEAR Color YELLOW Glucose, Urine ([facility] [place] NEG Bilirubin NEG Ketones NEG SP Grav 1.015 Blood NEG PH 8.5 Protein NEG Urobil 0.2 Nitrite NEG Leukocytes ([facility] [place]) NEG Complete Blood Count 01/18/2009 WBC 7.5 x10^3/uL 3.6-9.6 Gran# 5.4 x10^3/uL 1.5-7.2 Gran% 72.5 % 42.2-75.2 HCT 45 % 36-50 HGB 15.7 g/dL 12.1-17.2 Lymph# 1.7 x10^3/uL 0.7-4.9 Lymph% 22.6 % 20.5-51.1 MCH 29.0 pg 27.6-33.3 MCV 83.4 fL 82.2-97.4 MCHC 34.8 g/dL 33.0-35.5 Mo# 0.4 x10^3/uL 0.1-0.9 Mo% 4.9 % 1.7-9.3 MPV 7.9 fL 7.4-10.4 PLT 242 x10^3/uL 150-400 RBC 5.41 x10^6/uL 3.90-5.70 RDW 13.2 % 11.6-13.7 Comprehensive Metabolic Prof 01/18/2009 Albumin 4.3 g/dL 3.8-5.5 Alk. Phos. 69 U/L 22-95 Alt (SGPT) 28 U/L 10-40 Ast (Sgot) 22 U/L 5-34 BUN 12 mg/dL 6-26 Calcium 9.3 mg/dL 8.6-10.2 Chloride 101 mEq/L 94-112 Creatinine 1.2 mg/dL 0.6-1.4 Carbon Dioxide 26 mEq/L 21-32 Glucose 112 mg/dL High 70-105 Sodium 142 mEq/L 134-149 Total Bilirubin 1.4 mg/dL High 0.2-1.3 26 Total Protein 6.7 g/dL 6.3-8.1 Potassium 4.3 mEq/L 3.6-5.5 Globulin 2.3 g/dL 2.0-4.8 A/G Ratio 1.9 Calc 0.6-2.2 BUN/Creat Ratio 10.2 Calc 8.0-36.0 Lipid Profile 01/18/2009 Cholesterol 199 mg/dL 120-200 HDL 34 mg/dL 30-70 Triglycerides 142 mg/dL 30-200 HDL Risk Factor 5.8 CALC 4.2-7.0 LDL (Calculated) 137 CALC High 0-129 VLDL (Calculated) 28 mg/dL 0-50 Laboratory test 01/18/2009 PSA 0.50 ng/mL 0.00-4.00 finding Wound Culture 02/10/2007 Gram Stain Additional rare wbc, mod gr 27 <SEE NOTE> Wound Culture Beta-hemolytic S <SEE NOTE> 28 Comp Metabolic ([facility]) Male 03/05/2006 Glucose, Serum ([facility]) 98 mg/dL 70-105 BUN ([facility]) 14 mg/dL 6-26 Creatinine ([facility]) 1.2 mg/dL 0.6-1.4 BUN/Creatinin Ratio 11.7 8.0-36 Sodium 142 134-149 Potassium 4.5 3.6-5.5 Chloride 98 mEq/L 94-112 Co2 26 21-32 Calcium ([facility]) 9.9 mg/dL 8.6-10.2 Total Protein 7.3 g/dL 6.3-8.1 Albumin ([facility]ma/[facility]CC/[facility]) 4.3 3.8-5.5 Globulin 3.0 2.0-4.8 A/G Ratio ([facility]) 1.4 0.6-2.2 Alk Phos (a) Male 78 U/L 22-95 Alt-M SGPT Male (a) 35 10-40 Ast Sgot 25 U/L 5-34 Bilirubin, Total 1.5 mg/dL High 0.2-1.3 29 Lipid Profile([facility]) 03/05/2006 Cholesterol 228 mg/dL High 120-200 Male (a/[facility]) Triglyceride 115 mg/dL 30-200 HDL Cholesterol ([facility]) Male 38 mg/dL 30-70 LDL, Calculated ([facility]) 167 CALC High 0-129 VLDL 23 0-50 HDL Risk Factor ([facility]) 6.1 CALC 4.2-7.0 Laboratory test finding 03/05/2006 PSA ([facility]) 0.61 0.0-4.0 CBC ([place]) ([facility]) New 03/05/2006 WBC 8.1 3.6-9.6 RBC 5.27 3.90-5.70 Hemoglobin ([facility]/CTX) 15.8 g/dL 12.1 - 17.2 Hematocrit (a/CMC/CTX) 45.3 % 36.1 - 50.3 Mean Corpuscular Vol 85.9 82.2-97.4 Mean Corpuscular Hemaglobin 29.9 27.6-33.3 Mean Corpuscular Hemo Concen 34.8 33.0-36.0 RDW 13.5 11.6-13.7 Platelets 236 10^3/ul 150-400 Mean Platelet Volume 9.6 7.4-10.4 Auto-Diff - Gran# 5.3 1.5-7.2 Lymph# 2.1 0.7-4.9 Monocytes 0.8 10^3/uL 0.1 - 0.9 Gran% 65.5 42.2-75.2 Lymph% 25.4 20.5-51.1 Monocytes 0.8 % Low 1.7-9.3 Ua - Non Micro ([facility]) 03/05/2006 Appearance CLEAR Color LT YELLOW Glucose NEG Bilirubin NEG Ketones NEG SP Grav <=1.005 Blood NEG PH 6.0 Protein NEG Urobil 0.2 Nitrite NEG Leukocytes ([facility]) NEG Laboratory test finding 06/15/2004 Comments CMP;URIC ACID;PHOS; Lipids; Iron 1 SEE RESULT BELOW Name: MAURICE MERCEDES : [address]: Evens Paul MD Acct: [id number] Unit: [id number] AGE: 62 Location: [facility] Re03/08/17 SEX: M Status: REG REF SPEC: [id number] SHARIF: 03/08/17-[address] [facility] [address]: Evens Paul MD REQ: [id number] RECD: 03/08/17 STATUS: COMP _ SOURCE: MISC SOURC SPDESC: ORDERED: Culture Stain COMMENTS: FASTING 8 HOUR 1culture swab [id number] Specimen Description left eye Procedure Result Reported Site Wound/Misc Gram Stain Final 03/09/17- 0712 ML 1+ Neutrophils 2+ Nucleated Cells No Organisms Seen Wound/Misc Culture Final 03/10/17- 1015 ML Organism 1 MRSA Quantity 2+ 1. MRSA M.I.C. RX --------- ------ Penicillin >=0.5 R Clindamycin <=0.25 S Erythromycin >=8 R Gentamicin <=0.5 S Linezolid 2 S Nitrofurantoin <=16 S Oxacillin >=4 R * Quinupristin/Dalfopristin 0.5 S Rifampin <=0.5 S Tetracycline <=1 S Doxycycline - Deduced S CONTINUED ON NEXT PAGE * ML=Testing performed at Main Lab DEPARTMENT OF PATHOLOGY, [address] [place] [address] Víctor Nye M.D. Director MIN # [id number] Patient: MAURICE MERCEDES [id number] (Continued) Specimen: [id number] Collected: 11/17/17-1351 Received: 03/08/17 (Continued) Procedure Result Reported Site Wound/Misc Culture Final (continued) 03/10/17- 101 1. MRSA (continued) M.I.C. RX --------- ------ * Minocycline - Deduced S Trimethoprim/Sulfamethoxazole <=10 S Vancomycin 1 S Imipenem-Deduced R * Ampicillin/Sulbactam-Deduced R Cefazolin-Deduced R * These antibiotics are not available in the [facility] Formulary Contact the Microbiology Department for any additional antibiotic reporting. * ML - MAIN LAB ([facility]) . END OF REPORT * ML=Testing performed at Main Lab DEPARTMENT OF PATHOLOGY, [address] [place] [address] Víctor Nye M.D. Director [facility] # [id number] 2 1 sst 3 Negative: < 0.8 Indeterminate: 0.8 - 0.9 Positive: > 0.9 The CDC recommends that a positive HCV antibody result be followed up with a HCV Nucleic Acid Amplification test (878530). 4 RESULTS VERIFIED BY REPEAT ANALYSIS 5 RESULTS VERIFIED BY REPEAT ANALYSIS 6 RESULTS VERIFIED BY REPEAT ANALYSIS 7 1 SST 8 Negative <1:80 Borderline 1:80 Positive >1:80 9 HLA-B*27 Negative HLA allele interpretation for all loci based on IMGT/HLA database version 3.21 HLA Lab CLIA ID Number [id number] This test was performed using PCR (Polymerase Chain Reaction)/SSOP (Sequence Specific Oligonucleotide Probes) technique. SBT (Sequence Based Typing) and/or SSP (Sequence Specific Primers) may be used as supplemental methods when necessary. Please contact [facility] Customer Service at if you have any questions. Director of HLA Laboratory Dr Rajeev Nichole, PhD 10 Negative <20 Weak positive 20 - 39 Moderate positive 40 - 59 Strong positive >59 11 2 SST 12 Positive: 5 of the following Borrelia-specific bands: 18,23,28,30,39,41,45,58, 66, and 93. Negative: No bands or banding patterns which do not meet positive criteria. 13 Note: An equivocal or positive EIA result followed by a negative Western Blot result is considered NEGATIVE. An equivocal or positive EIA result followed by a positive Western Blot is considered POSITIVE by the CDC. Positive: 2 of the following bands: 23,39 or 41 Negative: No bands or banding patterns which do not meet positive criteria. Criteria for positivity are those recommended by CDC/ASTPHLD. p23=Osp C, e89=[id number] Note: Sera from individuals with the following may cross react in the [place]yme Western Blot assays: other spirochetal diseases (periodontal disease, leptospirosis, relapsing fever, yaws, and pinta); connective autoimmune (Rheumatoid Arthritis and Systemic Lupus Erythematosus and also individuals with Antinuclear Antibody); other infections ([place] Spotted Fever; Paul-Knig Virus, and Cytomegalovirus). 14 RESULTS VERIFIED BY REPEAT ANALYSIS 15 2 SSTS; 1 LAV 16 Positive: 5 of the following Borrelia-specific bands: 18,23,28,30,39,41,45,58, 66, and 93. Negative: No bands or banding patterns which do not meet positive criteria. 17 Note: An equivocal or positive EIA result followed by a negative Western Blot result is considered NEGATIVE. An equivocal or positive EIA result followed by a positive Western Blot is considered POSITIVE by the CDC. Positive: 2 of the following bands: 23,39 or 41 Negative: No bands or banding patterns which do not meet positive criteria. Criteria for positivity are those recommended by CDC/ASTPHLD. p23=Osp C, k20=[id number] Note: Sera from individuals with the following may cross react in the Lyme Western Blot assays: other spirochetal diseases (periodontal disease, leptospirosis, relapsing fever, yaws, and pinta); connective autoimmune (Rheumatoid Arthritis and Systemic Lupus Erythematosus and also individuals with Antinuclear Antibody); other infections ([place] Spotted Fever; Paul-King Virus, and Cytomegalovirus). 18 Negative <0.91 Equivocal 0.91 - 1.09 Positive >1.09 Note: The CDC currently advises that Western blot testing be performed following all equivocal or positive EIA results. Final diagnosis should include appropriate clinical findings and a positive EIA which is also positive by Western blot. 19 Negative <0.91 Equivocal 0.91 - 1.09 Positive >1.09 Note: IgM levels may peak at 3-6 weeks post infection, then gradually decline. [facility] currently advises that Western Blot testing be performed following all equivocal or positive EIA results. Final diagnosis should include appropriate clinical findings and a positive EIA which is also positive by Western Blot. 20 RESULT ALE'D 21 Negative <0.91 Equivocal 0.91 - 1.09 Positive >1.09 Note: The CDC currently advises that Western blot testing be performed following all equivocal or positive EIA results. Final diagnosis should include appropriate clinical findings and a positive EIA which is also positive by Western blot. 22 Negative <0.91 Equivocal 0.91 - 1.09 Positive >1.09 . Note: IgM levels may peak at 3-6 weeks post infection, then gradually decline. [facility] currently advises that Western Blot testing be performed following all equivocal or positive EIA results. Final diagnosis should include appropriate clinical findings and a positive EIA which is also positive by Western Blot. 23 Positive: 5 of the following Borrelia-specific bands: 18,23,28,30,39,41,45,58, 66, and 93. Negative: No bands or banding patterns which do not meet positive criteria. 24 Note: An equivocal or positive EIA result followed by a negative Western Blot result is considered NEGATIVE. An equivocal or positive EIA result followed by a positive Western Blot is considered POSITIVE by the CDC. . Positive: 2 of the following bands: 23,39 or 41 Negative: No bands or banding patterns which do not meet positive criteria. Criteria for positivity are those recommended by CDC/ASTPHLD. p23=Osp C, u91=aynvzwdoh . Note: Sera from individuals with the following may cross react in the Lyme Western Blot assays: other spirochetal diseases (periodontal disease, leptospirosis, relapsing fever, yaws, and pinta); connective autoimmune (Rheumatoid Arthritis and Systemic Lupus Erythematosus and also individuals with Antinuclear Antibody); other infections ([place] Spotted Fever; Paul-King Virus, and Cytomegalovirus). . . 25 RESULT ALE'D 26 result ale'd 27 rare wbc, mod gram pos cocci 28 Beta-hemolytic Strep, not group A or B Predominating WOUND CULTURE Beta-hemolytic Strep, not group A or B Predominating 1 29 RESULT VERIFIED BY REPEAT ANALYSIS Procedures Date CPT Code Description Status 10/02/2016 15054 Electrocardiogram Complete Completed 07/25/2016 Colonoscopy Completed 03/03/2013 50315 Vision Test- screening test of visual acuity, Completed quantitative, bila 11/06/2012 30322 Pulse Oximetry Completed 02/12/2012 81322 Electrocardiogram Complete Completed 03/05/2006 09689 Electrocardiogram Complete Completed 03/20/2004 62697 Spirometry Completed Encounters Type Date Location Provider CPT E/M Dx Office Visit 03/08/2017 9:10a Main Office Evens Paul 35009 L03.213 [place] Office Visit 12/17/2016 1:10p Main Office Evens Paul 12898 J01.00 [place] Office Visit 11/20/2016 11:00a [facility] Office Geraldine Liset [facility] 09388 H01.005 H10.89 F52.21 Office Visit 10/02/2016 10:20a [facility] Office Evens Paul M.D. 35179 M10.9 I10 Z00.00 Z11.59 Office Visit 10/04/2015 10:20a [facility] Office Evens Paul M.D. 41323 J01.00 Office Visit 08/30/2015 8:10a [facility] Evens Paul M.D. 28967 Z00.00 I10 Z23 Office Visit 06/06/2015 3:10p Main Office Evens Paul M.D. 07957 M65.869 Office Visit 08/10/2014 10:20a [facility] Evens Paul M.D. 38349 V70.0 719.47 Office Visit 12/29/2013 8:30a [facility] Wallace Soto M.D. 33774 461.9 Office Visit 06/19/2013 4:20p Main Office Evens Paul M.D. 75491 782.1 Office Visit 05/08/2013 9:20a Main Office Evens Paul M.D. 26165 782.1 Office Visit 03/03/2013 9:20a [facility] Evens Paul M.D. 84784 v04.81 V70.0 599.72 V76.44 V72.0 V76.41 Office Visit 02/06/2013 3:10p Main Office Evens Paul M.D. 71979 686.8 Office Visit 11/06/2012 7:00p Main Office John Crain M.D. 35449 461.0 Office Visit 04/23/2012 12:20p Main Office Evens Paul M.D. 98976 682.5 Office Visit 03/25/2012 9:20a [facility] Evens Paul M.D. 03297 401.1 Office Visit 02/12/2012 9:20a [facility] Evens Paul M.D. 70842 V70.0 599.72 Office Visit 08/29/2010 4:00p [facility] Evens Paul M.D. 52305 995.3 493.00 Office Visit 08/10/2009 12:20p Main Office Evens Paul M.D. 44490 719.47 Office Visit 01/18/2009 10:20a [facility] Evens Paul M.D. 35483 V70.0 Office Visit 09/29/2008 8:20p Main Office Evens Paul M.D. 52549 995.3 Office Visit 06/12/2007 2:00p [facility] KISHA Mason 55809 461.9 Office Visit 02/12/2007 8:00p Main Office Evens Paul M.D. 07496 709.8 Office Visit 02/10/2007 9:50a [facility] John Crain M.D. 39928 709.8 Office Visit 04/24/2006 7:00p Main Office Evens Paul M.D. 63534 381.10 Office Visit 03/05/2006 3:20p [facility] Evens Paul M.D. 24487 791.4 V06.5 V70.0 790.21 272.0 V76.44 Office Visit 12/11/2005 8:15p Main Office [facility] 47741 493.90 Office Visit 03/20/2004 11:10a Main Office Evens Paul M.D. 28535 493.90 Office Visit 06/14/2003 8:00p Main Office [address] [facility] [address]131 490 461.9 Plan of Care Future Appointment(s):11/19/2017 8:10 am - Evens Paul M.D. at [facility] Vpsdto0706/14/2017 - STEPHANIE MasonPJ01.90 Acute sinusitis, unspecifiedNew Medication:Amoxicillin/Clavulanate Potassium 875-125 mgComments: Take the full course of antibiotics, with food.Drink plenty of fluids and get as much rest as possible.You can trying Mucinex (guifenisen) 600mg every 12 hours, this helps to thin secretions (drink lots of water while taking) or continue taking Sudafed and Afrin as needed. You can also use saline nasal spray to irrigate your nasal passages.Please call if you are not getting better.
--- NOTE | 2017-07-04 10:20 | RAD ---
Indication: Scrotal pain. Real-time sonography of the scrotum was performed. The right testis measures 5.1 x 2.5 x 3.2 cm. No intratesticular masses are noted. Normal flow is noted in the right testis. The right epididymis measures 12 x 15 mm. No hydrocele is noted. In the right lateral aspect of the scrotal skin there is focal thickening of the skin with increased vascularity suggestive of cellulitis or phlegmon. There may BE early collection or scarring without palpable hypoechoic area measuring 2.4 x 1.5 x 2.8 cm. This appears to be heterogeneous in echotexture. The left testis measures 4.2 x 1.8 x 2.8 cm. Prominent rete testes is noted. Normal flow is noted in the left testis. The epididymis measures 13 x 12 mm. IMPRESSION: No intratesticular masses are noted although prominent rete testes is noted in the left testicle. Skin thickening and Echo complex mass in the soft tissues within the scrotum is noted with increased vascularity suspicious for cellulitis and phlegmonous change. Echo complex lesion may represent involuting abscess or scarring.
[2017-07-04 10:21] LABS: Urine Appearance Clear; Urine Blood Negative (Negative); Urine Color Yellow; Urine Ketones Negative (Negative); Urine Protein Negative (Negative); Urine Urobilinogen Negative (Negative)
[2017-07-04] MEDS ORDERED: Lidocaine 1%* 5 ML VIAL ONE (10:23)
[2017-07-04] MEDS ORDERED: Clindamycin 600 MG IVPREMIX(* 600 MG/50 ML SDV IV ONE (11:04)
[2017-07-04 12:02] VITALS: BP 129/94
--- NOTE | 2017-07-05 08:36 | ED ---
Yuniel Fowler Angela, scribed for Rodriguez Dawn MD on 07/04/17 at 0806 . GI/ HPI - HPI Summary HPI Summary: This pt is a 62 y/o male [facility] c/o increase in size of "lump" in scrotum x5 days. Pt reports that he first noticed this "lump" over the weekend but notes it wasn't painful. As the days progressed, pt states his pain worsened. Pt made an appointment with Dr. Mcduffie to be seen, but it was scheduled for next week. Pt reports there has been an increase in size of lump, has become more painful, and developed a fever. Last night, he states he had a fever of 99 and 100.7 F. He describes his pain as pinching burning sensation. He notes hx of infections since 2016, including gum infection, sinus infection, periorbital infection that then was found to be staph and MRSA ( treated with clindamycin), URI, and cellulitis of foot. Pt is not currently on antibiotics. - History of Current Complaint Chief Complaint: EDGeneral Time Seen by Provider: 07/04/17 07:48 Stated Complaint: TESTICULAR PROBLEM Hx Obtained From: Patient Onset/Duration: Started Days Ago, Still Present Timing: Lasting Days Current Severity: Moderate Pain Intensity: 3 Additional Locations for Males: Scrotum - right Pain Characteristics: Burning - and pinching Associated Signs and Symptoms: Positive: Fever, Lightheadedness. Negative: Nausea, Vomiting, Rectal Pain, Chest Pain, UTI Symptoms Aggravating Factor(s): Nothing Alleviating Factor(s): Nothing - Allergy/Home Medications Allergies/Adverse Reactions: Allergies Allergy/AdvReac Type Severity Reaction Status Date / Time No Known Allergies Allergy Verified 07/04/17 07:49 PMH/Surg Hx/FS Hx/Imm Hx Endocrine/Hematology History: Denies: Hx Diabetes Cardiovascular History: Reports: Hx Hypertension - ON MEDS Denies: Hx Pacemaker/ICD History: Denies: Hx Renal Disease Sensory History: Denies: Hx Hearing Aid Psychiatric History: Denies: Hx Panic Disorder Infectious Disease History: No Infectious Disease History: Denies: Traveled Outside the [place] in Last 30 Days - Family History Known Family History: Negative: Diabetes, Other - NO HISTORY OF GOUT - Social History Alcohol Use: Rare Substance Use Type: Reports: None Smoking Status (MU): Never Smoked Tobacco Review of Systems Positive: Fever, Chills ENT: Negative Cardiovascular: Negative Respiratory: Negative Genitourinary: Other - right scrotal pain and swelling Musculoskeletal: Negative Neurological: Negative All Other Systems Reviewed And Are Negative: Yes Physical Exam - Summary Physical Exam Summary: VITAL SIGNS: Reviewed. GENERAL: Patient is a well-developed and nourished male who is lying comfortable in the stretcher. Patient is not in any acute respiratory distress. HEAD AND FACE: No signs of trauma. No ecchymosis, hematomas or skull depressions. No sinus tenderness. EYES: PERRLA, EOMI x 2, No injected conjunctiva, no nystagmus. EARS: Hearing grossly intact. Ear canals and tympanic membranes are within normal limits. MOUTH: Oropharynx within normal limits. NECK: Supple, trachea is midline, no adenopathy, no JVD, no carotid bruit, no c- spine tenderness, neck with full ROM. CHEST: Symmetric, no tenderness at palpation LUNGS: Clear to auscultation bilaterally. No wheezing or crackles. CVS: Regular rate and rhythm, S1 and S2 present, no murmurs or gallops appreciated. ABDOMEN: Soft, non-tender. No signs of distention. No rebound no guarding, and no masses palpated. Bowel sounds are normal. : Circumcised penis, both testicles are descended. Positive cremasteric reflex. Abscess on the right scrotal area. EXTREMITIES: FROM in all major joints, no edema, no cyanosis or clubbing. NEURO: Alert and oriented x 3. No acute neurological deficits. Speech is normal and follows commands. SKIN: Dry and warm Triage Information Reviewed: Yes Vital Signs On Initial Exam: Initial Vitals Temp Pulse Resp BP Pulse Ox 97.8 F 109 20 136/90 97 07/04/17 07:39 07/04/17 07:39 07/04/17 07:39 07/04/17 07:39 07/04/17 07:39 Vital Signs Reviewed: Yes Procedures - Incision and Drainage Site: Right scrotum Anesthesia: Lidocaine Instrument(s): Scalpel Diagnostics - Vital Signs Vital Signs Temp Pulse Resp BP Pulse Ox 07/04/17 07:39 97.8 F 109 20 136/90 97 - Laboratory Lab Results: Lab Results 07/04/17 07/04/17 07/04/17 Range/Units 08:05 08:05 08:05 WBC 13.1 H (3.5-10.8) 10^3/ul RBC 4.80 (4.0-5.4) 10^6/ul Hgb 13.7 L (14.0-18.0) g/dl Hct 40 L (42-52) % MCV 83 (80-94) fL MCH 29 (27-31) pg MCHC 35 (31-36) g/dl RDW 14 (10.5-15) % Plt Count 263 (150-450) 10^3/ul MPV 8 (7.4-10.4) um3 Neut % (Auto) 75.5 (38-83) % Lymph % (Auto) 11.9 L (25-47) % Andrews % (Auto) 9.3 H (0-7) % Eos % (Auto) 1.9 (0-6) % Baso % (Auto) 1.4 (0-2) % Absolute Neuts (auto) 9.9 H (1.5-7.7) 10^3/ul Absolute Lymphs (auto) 1.6 (1.0-4.8) 10^3/ul Absolute Monos (auto) 1.2 H (0-0.8) 10^3/ul Absolute Eos (auto) 0.2 (0-0.6) 10^3/ul Absolute Basos (auto) 0.2 (0-0.2) 10^3/ul Absolute Nucleated RBC 0 10^3/ul Nucleated RBC % 0 Sodium 136 (133-145) mmol/L Potassium 3.8 (3.5-5.0) mmol/L Chloride 102 (101-111) mmol/L Carbon Dioxide 25 (22-32) mmol/L Anion Gap 9 (2-11) mmol/L BUN 14 (6-24) mg/dL Creatinine 1.07 (0.67-1.17) mg/dL Est GFR ( Amer) 89.8 (>60) Est GFR (Non-Af Amer) 69.8 (>60) BUN/Creatinine Ratio 13.1 (8-20) Glucose 119 H (70-100) mg/dL Lactic Acid 1.1 (0.5-2.0) mmol/L Calcium 9.6 (8.6-10.3) mg/dL Total Bilirubin 1.50 H (0.2-1.0) mg/dL AST 15 (13-39) U/L ALT 13 (7-52) U/L Alkaline Phosphatase 82 (34-104) U/L C-Reactive Protein 39.42 H (< 5.00) mg/L Total Protein 7.4 (6.4-8.9) g/dL Albumin 4.0 (3.2-5.2) g/dL Globulin 3.4 (2-4) g/dL Albumin/Globulin Ratio 1.2 (1-3) Urine Color Urine Appearance Urine pH (5-9) Ur Specific Pella (1.010-1.030) Urine Protein (Negative) Urine Ketones (Negative) Urine Blood (Negative) Urine Nitrate (Negative) Urine Bilirubin (Negative) Urine Urobilinogen (Negative) Ur Leukocyte Esterase (Negative) Urine Glucose (Negative) Urine Ascorbic Acid (Negative) 07/04/17 Range/Units 10:00 WBC (3.5-10.8) 10^3/ul RBC (4.0-5.4) 10^6/ul Hgb (14.0-18.0) g/dl Hct (42-52) % MCV (80-94) fL MCH (27-31) pg MCHC (31-36) g/dl RDW (10.5-15) % Plt Count (150-450) 10^3/ul MPV (7.4-10.4) um3 Neut % (Auto) (38-83) % Lymph % (Auto) (25-47) % Andrews % (Auto) (0-7) % Eos % (Auto) (0-6) % Baso % (Auto) (0-2) % Absolute Neuts (auto) (1.5-7.7) 10^3/ul Absolute Lymphs (auto) (1.0-4.8) 10^3/ul Absolute Monos (auto) (0-0.8) 10^3/ul Absolute Eos (auto) (0-0.6) 10^3/ul Absolute Basos (auto) (0-0.2) 10^3/ul Absolute Nucleated RBC 10^3/ul Nucleated RBC % Sodium (133-145) mmol/L Potassium (3.5-5.0) mmol/L Chloride (101-111) mmol/L Carbon Dioxide (22-32) mmol/L Anion Gap (2-11) mmol/L BUN (6-24) mg/dL Creatinine (0.67-1.17) mg/dL Est GFR ( Amer) (>60) Est GFR (Non-Af Amer) (>60) BUN/Creatinine Ratio (8-20) Glucose (70-100) mg/dL Lactic Acid (0.5-2.0) mmol/L Calcium (8.6-10.3) mg/dL Total Bilirubin (0.2-1.0) mg/dL AST (13-39) U/L ALT (7-52) U/L Alkaline Phosphatase (34-104) U/L C-Reactive Protein (< 5.00) mg/L Total Protein (6.4-8.9) g/dL Albumin (3.2-5.2) g/dL Globulin (2-4) g/dL Albumin/Globulin Ratio (1-3) Urine Color Yellow Urine Appearance Clear Urine pH 5.0 (5-9) Ur Specific Pella 1.020 (1.010-1.030) Urine Protein Negative (Negative) Urine Ketones Negative (Negative) Urine Blood Negative (Negative) Urine Nitrate Negative (Negative) Urine Bilirubin Negative (Negative) Urine Urobilinogen Negative (Negative) Ur Leukocyte Esterase Negative (Negative) Urine Glucose Negative (Negative) Urine Ascorbic Acid * A (Negative) Result Diagrams: 07/04/17 08:05 07/04/17 08:05 Lab Statement: Any lab studies that have been ordered have been reviewed, and results considered in the medical decision making process. - Ultrasound No standard instances Ultrasound Interpretation: Positive (See Comments) - Testicular US IMPRESSION: No intratesticular masses are noted although prominent rete testes is noted in the left testicle. Skin thickening and Echo complex mass in the soft tissues withtin the scrotum is noted with increased vascularity suspicious for cellulitis and phlegmonous change. Echo complex lesion may represent involuting abscess or scarring. Dr. Dawn has reviewed this radiology report. Ultrasound Interpretation Completed By: Radiologist Re-Evaluation - Re-Evaluation First Eval Re-Evaluation Time: 10:36 Comment: Starting incision and drainage. GIGU Course/Dx - Course Assessment/Plan: This pt is a 62 y/o male [facility] c/o increase in size of "lump" in scrotum x5 days. Pt reports that he first noticed this "lump" over the weekend but notes it wasn't painful. As the days progressed, pt states his pain worsened. Pt made an appointment with Dr. Mcduffie to be seen, but it was scheduled for next week. Pt reports there has been an increase in size of lump, has become more painful, and developed a fever. Last night, he states he had a fever of 99 and 100.7 F. He describes his pain as pinching burning sensation. He notes hx of infections since 2016, including gum infection, sinus infection, periorbital infection that then was found to be staph and MRSA (treated with clindamycin), URI, and cellulitis of foot. Pt is not currently on antibiotics. Test results without any significant abnormalities except for WBC of 13.1, glucose of 119, total bilirubin of 1.50, CRP of 39.4. Urinalysis is negative for UTI. Testicular US: No intratesticular masses are noted although prominent rete testes is noted in the left testicle. Skin thickening and Echo complex mass in the soft tissues withtin the scrotum is noted with increased vascularity suspicious for cellulitis and phlegmonous change. Echo complex lesion may represent involuting abscess or scarring. In the ED course the pt was given Clindamycin. I discussed pt care with Dr. Melgar, urologist, who recommends an incision and drainage, and follow up with Dr. Mcduffie. I performed an incision and drainage on the abscess of the right scrotum. Pt tolerated the procedure well. Pt will be given a prescription for Clindamycin. I discussed all the findings and test results with the patient. Patient was instructed to return to the emergency room immediately if any of the symptoms return or worsens. Plan of care was discussed with the patient and understands and agrees. All questions were answered at patient satisfaction. There were no further complaints or concerns. Therefore he will be discharged to home with follow up from his PCP in [address] Mcduffie next Saturday. He is instructed to return to the ED for any worsening or new symptoms. Pt is hemodynamically stable, alert and oriented x3. - Diagnoses Provider Diagnoses: Abscess, Status post incision and drainage - Physician Notifications Discussed Care Of Patient With: Moustapha Melgar Time Discussed With Above Provider: 08:39 Instructed by Provider To: Other - I discussed pt care with Dr. Melgar, urologist , who recommends I and D and discharge the pt home with follow up from Dr. Mcduffie. Discharge - Discharge Plan Condition: Stable Disposition: HOME Prescriptions: Clindamycin Cap(NF) [Clindamycin Cap 300 mg Cap(NF)] 300 mg PO QID #40 cap Patient Education Materials: Abscess (ED), Incision and Drainage (ED) Referrals: Evens Paul MD [Primary Care Provider] - 3 Days Gold Mcduffie MD [Medical Doctor] - Additional Instructions: Please follow up with your primary care provider in [address] Mcduffie next 07/10/17. RETURN TO THE ED FOR ANY WORSENING SYMPTOMS. The documentation as recorded by the Yuniel dewey Angela accurately reflects the service I personally performed and the decisions made by López quinteros Walter, MD.
--- NOTE | 2017-07-05 10:19 | PN ---
Progress Note - Progress Note Date of Service: 07/04/17 Note: patient had an abscess I&D. wound culture obtained and positive for MRSA and s. aureus. placed on clindamycin at discharge. shoulder have appropriate coverage. will wait for final culture results. no further action required at this time.
--- NOTE | 2017-07-07 08:56 | PN ---
Progress Note - Progress Note Date of Service: 07/04/17 Note: bacteria from wound/abscess is susceptible to clindamycin according to final culture sensitivity results.
== END 2017-07-04 12:01 | disposition home or self-care (01) ==
LOC: ED 07:30
DX: N45.4 Abscess of epididymis or testis (principal); B95.62 Methicillin resistant Staphylococcus aureus infection as the cause of diseases classified elsewhere; I10 Essential (primary) hypertension
CPT/HCPCS: 36415; 76870; 80053; 81003; 83605; 85025; 86140; 87040; 87070; 87077; 87186; 87205; 87491; 87591; 87640; 87641; 96374; 99282

== ENCOUNTER 2017-08-05 00:08 | Emergency (ER) | payer OTHER ==
[2017-08-05] MEDS ORDERED: ALPRAZolam TAB* 0.5 MG PO ONE (00:36)
[2017-08-05] MEDS ORDERED: cloNIDine TAB* 0.1 MG PO ONE (00:36)
--- OUTSIDE RECORDS SUMMARY | 2017-08-05 00:46 | XMS REPORT ---
:1955 External Reference #:[id number] Author Organization [facility] Address [address] [place] [address] Phone [phone] Care Team Providers Name Role Phone Evens Paul MD Care Team Information Commissioned [employer] Unavailable Evens Paul MD Primary Care Physician Unavailable Payers Type Date Identification Numbers Payment Provider Subscriber Commercial Effective: Policy Number: [id number] Acostaema Mercedes 2010 PayID: [id number] [place] [address] Problems Date Description Provider Status Onset: 02/12/2012 [...] Social History Type Date Description Comments 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 [place] Cigarette Use Nonsmoker Smoking Patient has never smoked Allergies, Adverse Reactions, Alerts Date Description Reaction Status Severity Comments 02/12/2012 NKDA active 10/04/2015 Seasonal active 10/04/2015 Animal Dander active Medications Medication Date Status Form Strength Qnty SIG Indications Ordering Provider Indomethacin 07/06 Active Capsules 50mg 60cap take 1 M79.674 s capsule by Liset, mouth [employer] twice a day as needed With Food Clindamycin HCL 07/04 Active Capsules 300mg 40cap 1 by mouth s four times a day Tobrex 03/05 Active Solution 0.3% 5unit 2 drops Evens Keila s affected Josen eye(s) M.DRadha three a day x 5 days Patanol 11/20 Active Solution 0.1% 5unit 1 drop in s both eyes Liset, twice a [employer] day as needed Viagra 11/20 Active Tablets 50mg 14tab 1 by mouth F52.21 Geraldine s 45 minutes [facility], prior to [employer] sexual relations Sample Simvastatin 09/11 Active Tablets 20mg 90tab Take 1 Evens Pedraza s Tablet By Beverly, Mouth M.D. Every Day Desoximetasone 08/10 Active Cream 0.25% 60gm use as Evens Pedraza directed josep Paul M.D. affected areas. Montelukast 06/15 Active Tablets 10mg 90tab take 1 Evens Pedraza s tablet by Beverly mouth M.D. every day Hydrochlorothiazi 02/11 Active Capsules 12.5mg 90cap take one Evens Pedraza de s capsule by Beverly mouth M.D. every day Proair HFA 08/29 Active Aerosol 108(90Bas 25.5g use 2 /2010 e) m puffs Sahil, mcg/Act every 4 [employer] hours as needed Centrum Ultra 00 Active Tablets daily Unknown Amoxicillin/Clavu 06/14 Hx Tablets 875-125mg 20tab 1 by mouth J01.90 Maggy lanate s twice a Sahil, - day with [employer] 07/05 Keflex 03/08 Hx Capsules 500mg 30cap 1 by mouth Evens Pedraza s tid Aretha Paul M.D. 06/14 Amoxicillin 12/17 Hx Tablets 500mg 20tab 1 by mouth Evens Pedraza /2016 s twice a Beverly, - day M.D. 03/05 Amoxicillin 10/03 Hx Tablets 500mg 20tab 1 by mouth Evens Pedraza /2015 s twice a Breimakristal, - day M.D. 10/02 Doxycycline 08/10 Hx Capsules 100mg 20cap use 1bid Evens Ba s Aretha Paul M.DRadha 06/06 Amoxicillin 12/29 Hx Tablets 875mg 20tab 1 by mouth 461.9 Wallace Soto, /2013 s twice a M.D. - day for 10 Topicort 06/19 Hx Cream 0.25% 45uni rub in Evens Pedraza /2013 ts sparingly Beverly, - bid prn M.D. 08/09 Doxycycline 06/19 Hx Capsules 100mg 42cap use 1bid Evens Ba s Aretha Paul M.D. 12/29 Triamcinolone 05/08 Hx Cream 0.1% 15gm apply Q.D Evens Pedraza Acetonide /2013 Aretha Paul M.DRadha 06/19 Ceftin 02/06 Hx Tablets 500mg 20tab 1 po bid Evens Pedraza /2012 Aretha Farias M.D. 06/19 Bactroban 02/06 Hx Cream 2% 15uni use as Evens Pedraza ts directed Beverly, - bid M.D. 06/19 Amoxicillin 11/06 Hx Tablets 875mg 14tab 1 po bid 461.0 John Tolbert /2012 Aretha MccauleyDRadha 11/13 Doxycycline 05/13 Hx Tablets 100mg 28tab 1 po bid x Evens Ba /2012 s 14 days Aretha Paul M.D. 11/06 Naprosyn 05/06 Hx Tablets 500mg 20tab 1 bid with Evens Pedraza /2012 s food Aretha PaulDRadha 06/19 Doxycycline 04/23 Hx Capsules 100mg 20cap use 1bid Evens Ba Aretha FariasDRadha 05/06 Proair HFA 08/29 Hx Aerosol 108(90Bas 2unit 2 puffs Evens J. e) mcg/ac s q4h prAretha Gomes M.D. 02/11 Proair HFA 08/29 Hx Aerosol 108(90Bas 2unit Use 2 Evens J. /2010 e) mcg/ac s Puffs Breiman, - Every 4 M.DRadha 11/12 Hours Needed Proair HFA 09/29 Hx Aerosol 108mcg/Ac 2unit 2 puffs Evens J. t s q4h prn Aretha Paul M.D. 08/29 Claritin 09/29 Hx Capsules 10mg 30cap 1 po qd [facility] Singulair 09/29 Hx Tablets 10mg 30tab take 1 Wallace Soto, s tablet by Lynn - mouth 08/09 every day Augmentin 06/12 Hx Tablets 500mg 20tab 1 po bid 461.9 Maggy s with food Sahil, - x 10 days [employer] 09/29 Duricef 02/10 Hx Capsules 500mg 20cap 1 PO bid 709.8 John ARadha /2006 Aretha Mccauley M.D. 02/20 Amoxicillin 04/24 Hx Capsules 250mg 30cap 1 po tid Evens Pedraza Aretha Farias M.D. 02/10 Albuterol Inhaler 03/20 Hx 1unit 2 puffs Evens Pedraza /2003 s qid Aretha De Los Santos M.D. 09/29 Augmentin XR 06/14 Hx 1000mg as Tamanna directed Domingo - [employer]-C 03/20 Singulair 06/14 Hx 10mg qd Tmaanna R Domingo - [employer]-C 03/20 Clarinex 06/14 Hx 5mg 30uni 1 qd prn Tamanna R ts Domingo - [employer]-C 03/20 medicaid auth #[id number] Rhinocort Aqua 06/14 Hx Inhaler 1unit 1 spray in Tamanna R s [address], - nostril qd [employer] 03/20 Robitussin ac 06/14 Hx Liq 4Oz 1/2-1 tsp Tamanna R /2003 po q4hs Domingo, - prn cough [employer]-C 03/05 Doxycycline 05/31 Hx 100mg 20uni 1 PO bid Víctor Benedict /1998 Aretha Adam M.D. 06/10 Immunizations CPT Code Status Date Vaccine Lot # [id number] Given 08/30/2015 Zostivax [id number] Given 08/30/2015 Tdap Tetanus, W Pertussis [id number] Given 03/03/2013 DO Not Use Split Influenza Virus Vaccine [id number] Given 05/06/2012 DO Not Use Split Influenza Virus Vaccine [id number] Given 03/05/2006 Tetanus And Diptheria Adult Preservative Free [id number] >7Yrs Vital Signs Date Vital Result Comment 07/12/2017 BP Systolic 130 mmHg BP Diastolic 76 mmHg Heart Rate 72 /min Body Temperature 98.8 F Respiratory Rate 16 /min Height 67 inches 5'7" 07/09/2017 BP Systolic 144 mmHg BP Diastolic 66 mmHg Heart Rate 82 /min Body Temperature 98.0 F Respiratory Rate 16 /min Height 67 inches 5'7" Weight 204.12 lb BMI (Body Mass Index) 32.0 kg/m2 07/06/2017 BP Systolic 132 mmHg BP Diastolic 82 mmHg Heart Rate 76 /min Body Temperature 98.0 F Respiratory Rate 16 /min Height 67 inches 5'7" Weight 205.00 lb BMI (Body Mass Index) 32.1 kg/m2 06/14/2017 BP Systolic 120 mmHg BP Diastolic [...] Result H/L Range Note Laboratory test finding 07/04/2017 Wound SEE RESULT BELOW 1 Culture/Sensi MRSA/S. aureus Ssti PCR SEE RESULT BELOW 2 Urinalysis Profile 07/04/2017 Urine Color Yellow Urine Appearance Clear Urine Specific Lynn 1.020 1.010-1.030 Urine pH 5.0 5-9 Urine Urobilinogen Negative Negative Urine Ketones Negative Negative Urine Protein Negative Negative Urine Leukocytes Negative Negative Urine Blood Negative Negative * * Negative 3 Urine Nitrite Negative Negative Urine Bilirubin Negative Negative Urine Glucose Negative Negative GC/Chlamydia Amplified Rna 07/04/2017 Chlamydia trachomatis Rna Negative Negative Neisseria gonorrhoeae (GC) Rna Negative Negative Laboratory test finding 07/04/2017 Blood Culture SEE RESULT BELOW 4 Laboratory test finding 03/08/2017 Wound Culture/Sensi SEE RESULT BELOW 5 Laboratory test finding 10/02/2016 HCV Antibody 0.1 s/coratio 0.0-0.9 6 , 7 Comprehensive Metabolic 10/02/2016 Sodium 138 mEq/L 134-149 [...] 5-34 Total Bilirubin 1.8 mg/dL High 0.2-1.3 8 GFR Non- >60 ml/min/1.73m^ >=60 GFR >60 [...] 4.1 x10^3/UL 1.5-7.2 Lymph# 1.7 x10^3/UL 0.7-4.9 [place]# 0.3 x10^3/UL 0.1-0.9 Gran % 66.0 % 42.2-75.2 Lymph % 28.6 % 20.5-51.1 [place]% 5.4 % 1.7-9.3 Laboratory test finding 10/02/2016 [...] 5-34 Total Bilirubin 2.1 mg/dL High 0.2-1.3 9 Direct Bilirubn 0.6 mg/dL 0.0-0.6 Indirect Bilirubin 1.50 mg/dL High 0.10-1.00 Ua - Non Micro (Fma) 08/30/2015 Appearance clear Color yellow Glucose, Urine (Fma/CMC/CTX) neg Bilirubin neg Ketones neg SP Grav 1.015 Blood neg PH 7.5 Protein neg Urobil 0.2 Nitrite neg Leukocytes (Fma/CMC/Centrex) neg Comprehensive Metabolic Prof 08/30/2015 Sodium 139 mEq/L 134-149 Potassium 4.1 mEq/L 3.6-5.5 Chloride 102 mEq/L 94-112 Carbon Dioxide 27 mEq/L 21-32 Glucose 115 mg/dL High 70-105 10 BUN 12 mg/dL 6-26 Creatinine 1.0 mg/dL [...] 06/09/2015 Ra Latex Turbid. 9.1 IU/mL 0.0-13.9 11 Factor ([facility]) Laboratory test finding 06/09/2015 Antinuclear Antibodies, Negative 11 , 12 Ifa Laboratory test finding 06/09/2015 Hla B 27 Disease Negative 11, 13 Association CCP Abs Igg/Iga 06/09/2015 CCP Antibodies IgG/IgA 2 units 0-19 11, 14 CBC Electronic (Fma) 06/06/2015 WBC 9.5 3.6-9.6 RBC 5.17 3.90-5.70 [...] C-Reactive Protein, Quant 47.0 mg/L High 0.0-4.9 15 Laboratory test finding 06/06/2015 Sedimentation Rate 21mm Lyme, Western Blot, 06/06/2015 IgG P93 Ab. Present 15 Serum IgG P66 Ab. Absent 15 IgG P58 Ab. Absent 15 IgG P45 Ab. Absent 15 IgG P41 Ab. Absent 15 IgG P39 Ab. Present 15 IgG P30 Ab. Absent 15 IgG P28 Ab. Absent 15 IgG P23 Ab. Absent 15 IgG P18 Ab. Absent 15 Lyme IgG WB Interp. Negative 15, 16 IgM P41 Ab. Absent 15 IgM P39 Ab. Absent 15 IgM P23 Ab. Absent 15 Lyme IgM WB Interp. Negative 15, 17 Comprehensive Metabolic Prof 08/10/2014 Sodium 137 mEq/L 134-149 Potassium 4.2 mEq/L 3.6-5.5 Chloride 100 mEq/L 94-112 Carbon Dioxide 28 mEq/L 21-32 Glucose 108 mg/dL High 70-105 18 BUN 12 mg/dL 6-26 Creatinine 1.1 mg/dL 0.6-1.4 BUN/Creat Ratio 10.9 CALC 8.0-36.0 Calcium 9.5 mg/dL 8.6-10.2 Total Protein 6.7 g/dL 6.4-8.3 Albumin 4.3 g/dL 3.8-5.5 Globulin 2.4 g/dL 2.0-4.8 A/G Ratio 1.8 CALC 0.6-2.3 Alk. Phosphatase 59 U/L 22-95 Alt (SGPT) 28 U/L 7-35 Ast (Sgot) 21 U/L 5-34 Total Bilirubin 1.1 mg/dL 0.2-1.3 Ua - Non Micro (a) 08/10/2014 Appearance CLEAR Color YELLOW Glucose, Urine (Fma/CMC/CTX) NEG Bilirubin NEG Ketones NEG SP Grav 1.015 Blood NEG PH 8.0 Protein NEG Urobil 0.2 Nitrite NEG Leukocytes (a/[facility]/Centrex) NEG Lipid Profile 08/10/2014 Cholesterol 203 mg/dL [...] 4.8 x10^3/UL 1.5-7.2 Lymph# 1.6 x10^3/UL 0.7-4.9 [place]# 0.5 x10^3/UL 0.1-0.9 Gran % 68.0 % 42.2-75.2 Lymph % 23.4 % 20.5-51.1 [place]% 8.6 % 1.7-9.3 Laboratory test finding 06/19/2013 C-Reactive Protein 1.3 mg/L 0.0-5.0 19 Sedimentation Rate 2 MM/HR 0-15 19 Lyme Western Blot Ser 06/19/2013 IgG P93 Ab. Absent 19 IgG P66 Ab. Absent 19 IgG P58 Ab. Absent 19 IgG P45 Ab. Absent 19 IgG P41 Ab. Present 19 IgG P39 Ab. Absent 19 IgG P30 Ab. Absent 19 IgG P28 Ab. Absent 19 IgG P23 Ab. Absent 19 IgG P18 Ab. Absent 19 Lyme IgG WB Interp. Negative 19, 20 IgM P41 Ab. Absent 19 IgM P39 Ab. Absent 19 IgM P23 Ab. Present 19 Lyme IgM WB Interp. Negative 19, 21 Lyme Igg/M W/RFX West 06/19/2013 Lyme IgG/IgM Ab <0.91 index 0.00- 0.90 19, 22 Lyme Disease Ab, Quant, IgM <0.91 index 0.00-0.90 19, 23 CBC Electronic ([facility]) 03/03/2013 WBC 6.0 3.6-9.6 RBC 4.65 3.90-5.70 Hemoglobin (a/CMC/CTX) 13.8 g/dL 12.1 - 17.2 Hematocrit (a/CMC/CTX) 40.4 % 36.1 - 50.3 Platelets 190 10^3/ul 150-400 Lymph% 27.0 20.5-51.1 Mixed% 5.4 Neutrophils % 67.6 Mean Corpuscular Vol 87 82.2-97.4 Mean Corpuscular Hemoglobin 29.7 27.6-33.3 Mean Corpuscular Hemo Concen 34.2 32.0-36.0 RDW 12.1 11.6-13.7 Mean Platelet Volume 7.1 6.5-11.0 Ua - Micro ([facility]) 03/03/2013 Appearance yellow Color clear Glucose neg Bilirubin neg Ketones neg SP Grav 1.015 Blood trace-lysed PH 7.0 Protein neg Urobil 0.2 Nitrite neg Leukocytes (a/CMC/Centrex) neg Hyaline - /Lpf Granular - /Lpf WBC ([facility],Centrex) - RBC 0-1 Mucus - /Lpf Epith - /Lpf Bacteria - /Hpf Amorphous - /Lpf Crystals, Fluid (a/CMC/CTX) - Z#Comments - Comprehensive Metabolic Prof 03/03/2013 Albumin 4.4 g/dL 3.8-5.5 Alk. Phos. 71 U/L 22-95 Alt (SGPT) 23 U/L 10-40 Ast (Sgot) 24 U/L 5-34 BUN 16 mg/dL 6-26 Calcium 9.5 mg/dL 8.6-10.2 Chloride 102 mEq/L 94-112 Creatinine 1.1 mg/dL 0.6-1.4 Carbon Dioxide 26 mEq/L 21-32 Glucose 105 mg/dL 70-105 Sodium 140 mEq/L 134-149 Total Bilirubin 1.4 mg/dL High 0.2-1.3 24 Total Protein 6.7 g/dL 6.3-8.1 Potassium 4.3 [...] IgG/IgM Ab 4.66 index High 0.00- 0.90 25 Lyme Ab Interp.,Eia Positive Lyme Disease Ab, Quant, IgM 7.07 index High 0.00-0.90 26 Lyme Ab IgM Interp., Eia Positive Lyme Western Blot Ser 05/06/2012 IgG P93 Ab. Absent IgG P66 Ab. Absent IgG P58 Ab. Absent IgG P45 Ab. Absent IgG P41 Ab. Present IgG P39 Ab. Absent IgG P30 Ab. Absent IgG P28 Ab. Absent IgG P23 Ab. Absent IgG P18 Ab. Absent Lyme IgG WB Interp. Negative 27 IgM P41 Ab. Present IgM P39 Ab. Absent IgM P23 Ab. Present Lyme IgM WB Interp. Positive 28 Lipid Profile 02/12/2012 Cholesterol 202 mg/dL High 120-200 HDL 40 mg/dL 30-70 Triglycerides 94 mg/dL 30-200 HDL Risk Factor 5.1 CALC High 0.0-4.4 LDL (Calculated) 144 CALC High 0-129 VLDL (Calculated) 19 mg/dL 0-50 Laboratory test finding 02/12/2012 Uric Acid 8.0 mg/dL 2.5-9.2 Ua - Micro ([facility]) 02/12/2012 Appearance CLEAR Color YELLOW Glucose NEG Bilirubin NEG Ketones NEG SP Grav 1.010 Blood SMALL PH 7.0 Protein NEG Urobil 0.2 Nitrite NEG Leukocytes (Fma/CMC/Centrex) NEG Hyaline - /Lpf Granular - /Lpf WBC (a,Centrex) 0-1 RBC 1-3 Mucus - /Lpf Epith - /Lpf Bacteria - /Hpf Amorphous - /Lpf Crystals, Fluid (Fma/CMC/CTX) - Z#Comments - CBC Electronic ([facility]) 02/12/2012 WBC 7.0 3.6-9.6 RBC 5.04 3.90-5.70 [...] 134-149 Total Bilirubin 1.5 mg/dL High 0.2-1.3 29 Total Protein 6.6 g/dL 6.3-8.1 Potassium 4.3 mEq/L 3.6-5.5 Globulin 2.2 g/dL 2.0-4.8 A/G Ratio 2.1 Calc 0.6-2.2 BUN/Creat Ratio 14.9 Calc 8.0-36.0 Ua - Non Micro ([facility]) 01/18/2009 Appearance CLEAR Color YELLOW Glucose, Urine ([facility]/CTX) NEG Bilirubin NEG Ketones NEG SP Grav 1.015 Blood NEG PH 8.5 Protein NEG Urobil 0.2 Nitrite NEG Leukocytes ([facility]/Centrex) NEG Complete Blood Count 01/18/2009 WBC 7.5 [...] 134-149 Total Bilirubin 1.4 mg/dL High 0.2-1.3 30 Total Protein 6.7 g/dL 6.3-8.1 Potassium 4.3 [...] Gram Stain Additional rare wbc, mod gr 31 <SEE NOTE> Wound Culture Beta-hemolytic S <SEE NOTE> 32 Comp Metabolic (a) Male 03/05/2006 Glucose, Serum (Fma/CMC/CTX) 98 mg/dL [...] Male 78 U/L 22-95 Alt-M SGPT Male (Fma) 35 10-40 Ast Sgot 25 U/L 5-34 Bilirubin, Total 1.5 mg/dL High 0.2-1.3 33 Lipid Profile([facility]) 03/05/2006 Cholesterol 228 mg/dL High 120-200 Male (Fma/CMC/Centrex) Triglyceride 115 mg/dL 30-200 HDL Cholesterol (Fma) Male 38 mg/dL 30-70 LDL, Calculated (Fma/[facility]) 167 CALC High 0-129 VLDL 23 0-50 HDL Risk Factor ([facility]) 6.1 CALC 4.2-7.0 Laboratory test finding 03/05/2006 PSA ([facility]/Centrex) 0.61 0.0-4.0 CBC ([place]) ([facility]) New 03/05/2006 WBC 8.1 3.6-9.6 RBC 5.27 3.90-5.70 Hemoglobin (a/CMC/CTX) 15.8 g/dL 12.1 - 17.2 Hematocrit (a/[facility]/CTX) 45.3 % 36.1 - 50.3 Mean Corpuscular Vol 85.9 82.2-97.4 Mean Corpuscular Hemaglobin 29.9 27.6-33.3 Mean Corpuscular Hemo Concen 34.8 33.0-36.0 RDW 13.5 11.6-13.7 Platelets 236 10^3/ul 150-400 Mean Platelet Volume 9.6 7.4-10.4 Auto-Diff - Gran# 5.3 1.5-7.2 Lymph# 2.1 0.7-4.9 Monocytes 0.8 10^3/uL 0.1 - 0.9 Gran% 65.5 42.2-75.2 Lymph% 25.4 20.5-51.1 Monocytes 0.8 % Low 1.7-9.3 Ua - Non Micro ([facility]) 03/05/2006 Appearance CLEAR Color LT YELLOW Glucose NEG Bilirubin NEG Ketones NEG SP Grav <=1.005 Blood NEG PH 6.0 Protein NEG Urobil 0.2 Nitrite NEG Leukocytes ([facility]/Centrex) NEG Laboratory test finding 06/15/2004 Comments CMP;URIC ACID;PHOS; Lipids; Iron 1 SEE RESULT BELOW Name: MAURICE MERCEDES: [address]: Rodriguez Dawn MD Acct: [id number] Unit: [id number] AGE: 62 Location: ED Re07/04/17 SEX: M Status: REG ER SPEC: [id number] SHARIF: 07/04/17-[address]: Rodriguez Dawn MD REQ: [id number] RECD: 07/04/17 STATUS: RES OT DR: Evens Paul MD _ SOURCE: WOUND SPDESC: ORDERED: Culture Stain Procedure Result Reported Site Wound/Misc Gram Stain Final 07/04/17- 1219 ML 2+ Neutrophils 1+ Epithelial Cells 1+ Gram Positive Cocci Wound/Misc Culture PENDING * - Main Lab . END OF REPORT DEPARTMENT OF PATHOLOGY, [address] [place] [address] Víctor Nye M.D. Director MIN # [id number] 2 SEE RESULT BELOW Name: MAURICE MERCEDES : [address]: Rodriguez Dawn MD Acct: [id number] Unit: [id number] AGE: 62 Location: ED Re07/04/17 SEX: M Status: DEP ER SPEC: [id number] SHARIF: 07/04/17-10[address] [facility] [address]: Rodriguez Dawn MD REQ: [id number] RECD: 07/04/17 STATUS: BHAVESH VASQUES DR: Evens Paul MD _ SOURCE: WOUND SPDESC: ORDERED: MRSA/SA SSTI, Culture Stain COMMENTS: Verbal to [id number] (ER) by [id number] at 1343 on 07/04/17. Results read back accurately. MRSA: Consistent with previous results. Procedure Result Reported Site MRSA/S. aureus SSTI PCR Final 07/04/17- 1338 ML Organism 1 MRSA POSITIVE Organism 2 S.AUREUS POSITIVE Wound/Misc Gram Stain Final 07/04/17- 1219 ML 2+ Neutrophils 1+ Epithelial Cells 1+ Gram Positive Cocci Wound/Misc Culture Final 07/06/17- 1103 ML Organism 1 MRSA Quantity 3+ 1. MRSA M.I.C. RX --------- ------ Penicillin >=0.5 R Clindamycin <=0.25 S Erythromycin >=8 R Gentamicin <=0.5 S Linezolid 2 S Oxacillin >=4 R * Quinupristin/Dalfopristin <=0.25 S CONTINUED ON NEXT PAGE DEPARTMENT OF PATHOLOGY, [address] [place] [address] Víctor Nye M.D. Director MIN # [id number] Patient: MAURICE MERCEDES [id number] (Continued) Specimen: [id number] Collected: 07/04/17-1099 Received: 07/04/17-1131 (Continued) Procedure Result Reported Site Wound/Misc Culture Final (continued) 07/06/17- 1102 1. MRSA (continued) M.I.C. RX --------- ------ Rifampin <=0.5 S Tetracycline <=1 S Doxycycline - Deduced S * Minocycline - Deduced S Trimethoprim/Sulfamethoxazole <=10 S Vancomycin <=0.5 S Imipenem-Deduced R * Ampicillin/Sulbactam-Deduced R Cefazolin-Deduced R * These antibiotics are not available in the [facility] Formulary Contact the Microbiology Department for any additional antibiotic reporting. * ML - Main Lab . END OF REPORT DEPARTMENT OF PATHOLOGY, [address] [place] [address] Víctor Nye M.D. Director [facility] # [id number] 3 *Ascorbic acid is present which may interfere with detection of blood. 4 SEE RESULT BELOW Name: MAURICE MERCEDES : [address]: Rodriguez Dawn MD Acct: [id number] Unit: [id number] AGE: 62 Location: ED Re07/04/17 SEX: M Status: DEP ER SPEC: [id number] SHARIF: 07/04/17 [facility] [address]: Rodriguez Dawn MD REQ: [id number] RECD: 07/04/17 STATUS: COMP DEION DR: Evens Paul MD _ SOURCE: BLOOD,VENO SPDESC: ORDERED: Blood Cult Procedure Result Reported Site Aerobic Culture Bottle Final 07/09/17- 829 ML No Growth Day 5 Anaerobic Culture Bottle Final 07/09/17- 829 ML No Growth Day 5 * ML - Main Lab . END OF REPORT DEPARTMENT OF PATHOLOGY, [address] [place] [address] Víctor Nye M.D. Director [facility] # [id number] 5 SEE RESULT BELOW Name: MAURICE MERCEDES : [address]: Evens Paul MD Acct: [id number] Unit: [id number] AGE: 62 Location: [facility] Re03/08/17 SEX: M Status: REG REF SPEC: [id number] SHARIF: 03/08/17-[address] [facility] [address]: Evens Paul MD REQ: [id number] RECD: 03/08/17 STATUS: COMP _ SOURCE: MISC SOURC SPDESC: ORDERED: Culture Stain COMMENTS: FASTING 8 HOUR 1culture swab [id number] Specimen Description left eye Procedure Result Reported [...] performed at Main Lab DEPARTMENT OF PATHOLOGY, [address], [place], [place] [address] Víctor Nye M.D. Director MIN # [id number] Patient: MAURICE MERCEDES [id number] (Continued) Specimen: [id number] Collected: 03/08/17 Received: 03/08/17 (Continued) Procedure Result Reported Site Wound/Misc Culture Final (continued) 03/10/17- 1015 1. MRSA (continued) M.I.C. RX --------- ------ * Minocycline - Deduced S Trimethoprim/Sulfamethoxazole <=10 S Vancomycin 1 S Imipenem-Deduced R * Ampicillin/Sulbactam-Deduced R Cefazolin-Deduced R * These antibiotics are not available in the [facility] Formulary Contact the Microbiology Department for any additional antibiotic reporting. * ML - MAIN LAB ([facility]) . END OF REPORT * ML=Testing performed at Main Lab DEPARTMENT OF PATHOLOGY, [address] [place] [address] Víctor Nye M.D. Director CLIA # [id number] 6 1 sst 7 Negative: < 0.8 Indeterminate: 0.8 - 0.9 Positive: > 0.9 The CDC recommends that a positive HCV antibody result be followed up with a HCV Nucleic Acid Amplification test (213383). 8 RESULTS VERIFIED BY REPEAT ANALYSIS 9 RESULTS VERIFIED BY REPEAT ANALYSIS 10 RESULTS VERIFIED BY REPEAT ANALYSIS 11 1 SST 12 Negative <1:80 Borderline 1:80 Positive >1:80 13 HLA-B*27 Negative HLA allele interpretation for all loci based on IMGT/HLA database version 3.21 HLA Lab CLIA ID Number [id number] This test was performed using PCR (Polymerase Chain Reaction)/SSOP (Sequence Specific Oligonucleotide Probes) technique. SBT (Sequence Based Typing) and/or SSP (Sequence Specific Primers) may be used as supplemental methods when necessary. Please contact HLA Customer Service at if you have any questions. Director of HLA Laboratory Dr Rajeev Nichole, PhD 14 Negative <20 Weak positive 20 - 39 Moderate positive 40 - 59 Strong positive >59 15 2 SST 16 Positive: 5 of the following Borrelia-specific [...] are those recommended by CDC/ASTPHLD. p23=Osp C, k82=[id number] Note: Sera from individuals with the following may cross react in the Lyme Western Blot assays: other spirochetal diseases (periodontal disease, leptospirosis, relapsing fever, yaws, and pinta); connective autoimmune (Rheumatoid Arthritis and Systemic Lupus Erythematosus and also individuals with Antinuclear Antibody); other infections (Hornbeak Spotted Fever; Paul-King Virus, and Cytomegalovirus). 18 RESULTS VERIFIED BY REPEAT ANALYSIS 19 2 SSTS; 1 LAV 20 Positive: 5 of the following Borrelia-specific bands: 18,23,28,30,39,41,45,58, 66, and 93. Negative: No bands or banding patterns which do not meet positive criteria. 21 Note: An equivocal or positive EIA result [...] are those recommended by CDC/ASTPHLD. p23=Osp C, a83=bcdauenag Note: Sera from individuals with the following may cross react in the Lyme Western Blot assays: other spirochetal diseases (periodontal disease, leptospirosis, relapsing fever, yaws, and pinta); connective autoimmune (Rheumatoid Arthritis and Systemic Lupus Erythematosus and also individuals with Antinuclear Antibody); other infections (Hornbeak Spotted Fever; Paul-King Virus, and Cytomegalovirus). 22 Negative <0.91 Equivocal 0.91 - 1.09 Positive >1.09 Note: The CDC currently advises that Western blot testing be performed following all equivocal or positive EIA results. Final diagnosis should include appropriate clinical findings and a positive EIA which is also positive by Western blot. 23 Negative <0.91 Equivocal 0.91 - 1.09 Positive >1.09 Note: IgM levels may peak at 3-6 weeks post infection, then gradually decline. [facility] currently advises that Western Blot testing be performed following all equivocal or positive EIA results. Final diagnosis should include appropriate clinical findings and a positive EIA which is also positive by Western Blot. 24 RESULT ALE'D 25 Negative <0.91 Equivocal 0.91 - 1.09 Positive >1.09 Note: The CDC currently advises that Western blot testing be performed following all equivocal or positive EIA results. Final diagnosis should include appropriate clinical findings and a positive EIA which is also positive by Western blot. 26 Negative <0.91 Equivocal 0.91 - 1.09 Positive >1.09 . Note: IgM levels may peak at 3-6 weeks post infection, then gradually decline. [facility] currently advises that Western Blot testing be performed following all equivocal or positive EIA results. Final diagnosis should include appropriate clinical findings and a positive EIA which is also positive by Western Blot. 27 Positive: 5 of the following Borrelia-specific bands: 18,23,28,30,39,41,45,58, 66, and 93. Negative: No bands or banding patterns which do not meet positive criteria. 28 Note: An equivocal or positive EIA result [...] are those recommended by CDC/ASTPHLD. p23=Osp C, u71=flwrwzcmd . Note: Sera from individuals with the following may cross react in the Lyme Western Blot assays: other spirochetal diseases (periodontal disease, leptospirosis, relapsing fever, yaws, and pinta); connective autoimmune (Rheumatoid Arthritis and Systemic Lupus Erythematosus and also individuals with Antinuclear Antibody); other infections ([place] Spotted Fever; Paul-King Virus, and Cytomegalovirus). . . 29 RESULT ALE'D 30 result ale'd 31 rare wbc, mod gram pos cocci 32 Beta-hemolytic Strep, not group A or B Predominating WOUND CULTURE Beta-hemolytic Strep, not group A or B Predominating 1 33 RESULT VERIFIED BY REPEAT ANALYSIS Procedures Date CPT Code Description Status 10/02/2016 65650 Electrocardiogram Complete Completed 07/25/2016 Colonoscopy Completed 03/03/2013 61720 Vision Test- screening test of visual acuity, Completed quantitative, bila 11/06/2012 57723 Pulse Oximetry Completed 02/12/2012 70042 Electrocardiogram Complete Completed 03/05/2006 68864 Electrocardiogram Complete Completed 03/20/2004 63908 Spirometry Completed Encounters Type Date Location Provider CPT E/M Dx Office Visit 07/09/2017 7:00p Main Office Geraldine Hutchins [facility] 34060 N50.811 M79.674 M79.675 M10.00 Office Visit 07/06/2017 10:45a Main Office Geraldine Maldonadobhart [facility] 76074 N50.811 M79.674 M79.675 M10.00 Office Visit 06/14/2017 9:30a Main Office Maggy Baxter [facility] 19945 J01.90 Office Visit 03/08/2017 9:10a Main Office Evens Paul M.D. 53898 L03.213 Office Visit 12/17/2016 1:10p Main Office Evens Paul M.D. 27872 J01.00 Office Visit 11/20/2016 11:00a [facility] Office Geraldine Hutchins [facility] 26993 H01.005 H10.89 F52.21 Office Visit 10/02/2016 10:20a [facility] Office Evens Paul M.D. 28749 M10.9 I10 Z00.00 Z11.59 Office Visit 10/04/2015 10:20a [facility] Office Evens Paul M.D. 44372 J01.00 Office Visit 08/30/2015 8:10a [facility] Office Evens Paul M.D. 48939 Z00.00 I10 Z23 Office Visit 06/06/2015 3:10p Main Office Evens Paul M.D. 26496 M65.869 Office Visit 08/10/2014 10:20a [facility] Office Evens Paul M.D. 89480 V70.0 719.47 Office Visit 12/29/2013 8:30a [facility] Office Wallace Soto M.D. 00541 461.9 Office Visit 06/19/2013 4:20p Main Office Evens Paul M.D. 22955 782.1 Office Visit 05/08/2013 9:20a Main Office Evens Paul M.D. 66227 782.1 Office Visit 03/03/2013 9:20a [facility] Office Evens Paul M.D. 70117 v04.81 V70.0 599.72 V76.44 V72.0 V76.41 Office Visit 02/06/2013 3:10p Main Office Evens Paul M.D. 02955 686.8 Office Visit 11/06/2012 7:00p Main Office John Crain M.D. 96483 461.0 Office Visit 04/23/2012 12:20p Main Office Evens Paul M.D. 74645 682.5 Office Visit 03/25/2012 9:20a [facility] Office Evens Paul M.D. 08803 401.1 Office Visit 02/12/2012 9:20a [facility] Office Evens Paul M.D. 14080 V70.0 599.72 Office Visit 08/29/2010 4:00p [facility] Office Evens Paul M.D. 65548 995.3 493.00 Office Visit 08/10/2009 12:20p Main Office Evens Paul M.D. 99997 719.47 Office Visit 01/18/2009 10:20a [facility] Office Evens Paul M.D. 51345 V70.0 Office Visit 09/29/2008 8:20p Main Office Evens Paul M.D. 28572 995.3 Office Visit 06/12/2007 2:00p Northeast Office KISHA Mason 67793 461.9 Office Visit 02/12/2007 8:00p Main Office Evens Paul M.D. 43670 709.8 Office Visit 02/10/2007 9:50a [facility] Office John Crain M.D. 55615 709.8 Office Visit 04/24/2006 7:00p Main Office Evens Paul M.D. 07192 381.10 Office Visit 03/05/2006 3:20p [facility] Office Evens Paul M.D. 89199 791.4 V06.5 V70.0 790.21 272.0 V76.44 Office Visit 12/11/2005 8:15p Main Office ANTONIA Guzman 19883 493.90 Office Visit 03/20/2004 11:10a Main Office Evens Paul M.D. 02815 493.90 Office Visit 06/14/2003 8:00p Main Office ANTONIA Guzman 46465 490 461.9 Plan of Care Future Appointment(s):11/19/2017 8:10 am - Evens Paul M.D. at [facility] [id number]/12/2017 - Geraldine Hutchins, FNPN50.811 Right testicular painAllComments:~B_~U_Medication Management~b_~u_ Patient Understands medications he 's taking? Yes No Are there Barriers to Adherence? Yes No Has the patient been asked about herbal supplements and therapies, and OTC meds? Yes No
--- OUTSIDE RECORDS SUMMARY | 2017-08-05 00:47 | XMS REPORT ---
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 Evens Paul MD Primary Care Physician Unavailable Payers Type Date Identification Numbers Payment Provider Subscriber Commercial Effective: Policy Number: [id number] Acostaema Mercedes 2010 PayID: [id number] [place] [address] Problems Date Description Provider Status Onset: 02/12/2012 [...] Social History Type Date Description Comments 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 [place] Cigarette Use Nonsmoker Smoking Patient has never smoked Allergies, Adverse Reactions, Alerts Date Description Reaction Status Severity Comments 02/12/2012 NKDA active 10/04/2015 Seasonal active 10/04/2015 Animal Dander active Medications Medication Date Status Form Strength Qnty SIG Indications Ordering Provider Indomethacin 07/06 Active Capsules 50mg 60cap take 1 M79.674 s capsule by Liset, mouth [employer]OOFER [employer]IN[employer] twice a day as needed With Food Clindamycin HCL 07/04 Active Capsules 300mg 40cap 1 by mouth s four times a day Tobrex 03/05 Active Solution 0.3% 5unit 2 drops Evens Keila s affected Josen eye(s) M.DRadha three a day x 5 days Patanol 11/20 Active Solution 0.1% 5unit 1 drop in s both eyes Liset, twice a [employer]OO[employer] day as needed Viagra 11/20 Active Tablets 50mg 14tab 1 by mouth F52.21 Geraldine s [address] [facility], prior to [employer] sexual relations Sample Simvastatin 09/11 Active Tablets [...] e) m puffs Sahil, mcg/Act every 4 [employer]OO[employer] hours as needed Centrum Ultra 00 Active Tablets daily Unknown Amoxicillin/Clavu 06/14 Hx Tablets 875-125mg 20tab 1 by mouth J01.90 Maggy lanate s twice a Sahil, - day with ROOFER VIN[employer] COATING 07/05 Keflex 03/08 Hx Capsules 500mg 30cap [...] [facility]d [facility] [place] Singulair 09/29 Hx Tablets 10mg 30tab take 1 Wallace Soto, s tablet by Lynn - mouth 08/09 every day Augmentin 06/12 Hx Tablets 500mg 20tab 1 po bid 461.9 Maggy s with food Sahil, - x 10 days [employer] 09/29 Duricef 02/10 Hx Capsules 500mg 20cap 1 PO bid 709.8 John ARadha /2006 Aretha Mccauley M.D. 02/20 Amoxicillin 04/24 Hx Capsules 250mg 30cap 1 po tid Evens Pedraza Aretha Farias M.D. 02/10 Albuterol Inhaler 03/20 Hx 1unit 2 puffs Evens Pedraza /2003 s qid Aretha De Los Santos M.D. 09/29 Augmentin XR 06/14 Hx 1000mg as Tamanna directed Domingo - [employer]-C 03/20 Singulair 06/14 Hx 10mg qd Tamanna R Domingo - [employer]OOFER [employer]-C 03/20 Clarinex 06/14 Hx 5mg 30uni 1 qd prn Tamanna R ts Domingo - [employer]-C 03/20 medicaid auth #[id number] Rhinocort Aqua 06/14 Hx Inhaler 1unit 1 spray in Tamanna R s [address], - nostril qd [employer]-C 03/20 Robitussin ac 06/14 Hx Liq 4Oz 1/2-1 tsp Tamanna R /2003 po q4hs Domingo, - prn cough [employer]-C 03/05 Doxycycline 05/31 Hx 100mg 20uni 1 PO bid Víctor Benedict /1998 Aretha Adam M.D. 06/10 Immunizations CPT Code Status Date Vaccine Lot # [id number] Given 08/30/2015 Zostivax [id number] Given 08/30/2015 Tdap Tetanus, W Pertussis [id number] 64065 Given 03/03/2013 DO Not Use Split Influenza Virus Vaccine [id number] Given 05/06/2012 DO Not Use Split Influenza Virus Vaccine [id number] Given 03/05/2006 Tetanus And Diptheria Adult Preservative Free [id number] >7Yrs Vital Signs Date Vital Result Comment 07/09/2017 BP Systolic 144 mmHg BP Diastolic [...] Color Yellow Urine Appearance Clear Urine Specific Vowinckel 1.020 1.010-1.030 Urine pH 5.0 5-9 Urine [...] 4.1 x10^3/UL 1.5-7.2 Lymph# 1.7 x10^3/UL 0.7-4.9 Ashe# 0.3 x10^3/UL 0.1-0.9 Gran % 66.0 % 42.2-75.2 Lymph % 28.6 % 20.5-51.1 Ashe% 5.4 % 1.7-9.3 Laboratory test finding 10/02/2016 [...] 08/30/2015 Appearance clear Color yellow Glucose, Urine (a/[facility]/CTX) neg Bilirubin neg Ketones neg SP Grav 1.015 Blood neg PH 7.5 Protein neg Urobil 0.2 Nitrite neg Leukocytes (a/[facility]/Centrex) neg Comprehensive Metabolic Prof 08/30/2015 Sodium 139 [...] 2 units 0-19 11, 14 CBC Electronic (a) 06/06/2015 WBC 9.5 3.6-9.6 [...] 08/10/2014 Appearance CLEAR Color YELLOW Glucose, Urine (a/[facility]/CTX) NEG Bilirubin NEG Ketones NEG SP Grav 1.015 Blood NEG PH 8.0 Protein NEG Urobil 0.2 Nitrite NEG Leukocytes ([facility]/Centrex) NEG Lipid Profile 08/10/2014 Cholesterol 203 mg/dL [...] 4.8 x10^3/UL 1.5-7.2 Lymph# 1.6 x10^3/UL 0.7-4.9 Ashe# 0.5 x10^3/UL 0.1-0.9 Gran % 68.0 % 42.2-75.2 Lymph % 23.4 % 20.5-51.1 Ashe% 8.6 % 1.7-9.3 Laboratory test finding 06/19/2013 [...] <0.91 index 0.00-0.90 19, 23 CBC Electronic ([facility]) 03/03/2013 WBC 6.0 3.6-9.6 RBC 4.65 3.90-5.70 Hemoglobin ([facility]/CTX) 13.8 g/dL 12.1 - 17.2 Hematocrit (a/[facility]/CTX) 40.4 % 36.1 - 50.3 Platelets 190 10^3/ul 150-400 Lymph% 27.0 20.5-51.1 Mixed% 5.4 Neutrophils % 67.6 Mean Corpuscular Vol 87 82.2-97.4 Mean Corpuscular Hemoglobin 29.7 27.6-33.3 Mean Corpuscular Hemo Concen 34.2 32.0-36.0 RDW 12.1 11.6-13.7 Mean Platelet Volume 7.1 6.5-11.0 Ua - Micro ([facility]) 03/03/2013 Appearance yellow Color clear Glucose neg Bilirubin neg Ketones neg SP Grav 1.015 Blood trace-lysed PH 7.0 Protein neg Urobil 0.2 Nitrite neg Leukocytes (a/[facility]/Centrex) neg Hyaline - /Lpf Granular - /Lpf WBC ([facility],Centrex) - RBC 0-1 Mucus - /Lpf Epith [...] Acid 8.0 mg/dL 2.5-9.2 Ua - Micro ([facility]) 02/12/2012 Appearance CLEAR Color YELLOW Glucose NEG Bilirubin NEG Ketones NEG SP Grav 1.010 Blood SMALL PH 7.0 Protein NEG Urobil 0.2 Nitrite NEG Leukocytes (a/[facility]/Centrex) NEG Hyaline - /Lpf Granular - /Lpf WBC ([facility]rex) 0-1 RBC 1-3 Mucus - /Lpf Epith - /Lpf Bacteria - /Hpf Amorphous - /Lpf Crystals, Fluid (a/[facility]/CTX) - Z#Comments - CBC Electronic ([facility]) 02/12/2012 WBC 7.0 3.6-9.6 RBC 5.04 3.90-5.70 Hemoglobin (a/[facility]/CTX) 14.6 g/dL 12.1 - 17.2 Hematocrit (a/[facility]/CTX) [...] 14.9 Calc 8.0-36.0 Ua - Non Micro (a) 01/18/2009 Appearance CLEAR Color YELLOW Glucose, Urine (a/[facility]/CTX) NEG Bilirubin NEG Ketones NEG SP Grav 1.015 Blood NEG PH 8.5 Protein NEG Urobil 0.2 Nitrite NEG Leukocytes (a/[facility]) NEG Complete Blood Count 01/18/2009 WBC 7.5 [...] Beta-hemolytic S <SEE NOTE> 32 Comp Metabolic ([facility]) Male 03/05/2006 Glucose, Serum ([facility]) 98 mg/dL 70-105 BUN ([facility]/Centrex) 14 mg/dL 6-26 Creatinine ([facility]/CTX) 1.2 mg/dL 0.6-1.4 BUN/Creatinin Ratio 11.7 8.0-36 Sodium 142 134-149 Potassium 4.5 3.6-5.5 Chloride 98 mEq/L 94-112 Co2 26 21-32 Calcium ([facility]/Centrex) 9.9 mg/dL 8.6-10.2 Total Protein 7.3 g/dL 6.3-8.1 Albumin ([facility]/Centrex) 4.3 3.8-5.5 Globulin 3.0 2.0-4.8 A/G Ratio ([facility]rex) 1.4 0.6-2.2 Alk Phos ([facility]) Male 78 U/L 22-95 Alt-M SGPT Male ([facility]) 35 10-40 Ast Sgot 25 U/L 5-34 Bilirubin, Total 1.5 mg/dL High 0.2-1.3 33 Lipid Profile(a) 03/05/2006 Cholesterol 228 mg/dL High 120-200 Male ([facility]/Centrex) Triglyceride 115 mg/dL 30-200 HDL Cholesterol ([facility]) Male 38 mg/dL 30-70 LDL, Calculated ([facility]) 167 CALC High 0-129 VLDL 23 0-50 HDL Risk Factor ([facility]) 6.1 CALC 4.2-7.0 Laboratory test finding 03/05/2006 PSA ([facility]/Centrex) 0.61 0.0-4.0 CBC ([place]) (a) New 03/05/2006 WBC 8.1 3.6-9.6 RBC 5.27 3.90-5.70 Hemoglobin ([facility]/CTX) 15.8 g/dL 12.1 - 17.2 Hematocrit ([facility]/CTX) 45.3 % 36.1 - 50.3 Mean Corpuscular Vol 85.9 82.2-97.4 Mean Corpuscular Hemaglobin 29.9 27.6-33.3 Mean Corpuscular Hemo Concen 34.8 33.0-36.0 RDW 13.5 11.6-13.7 Platelets 236 10^3/ul 150-400 Mean Platelet Volume 9.6 7.4-10.4 Auto-Diff - Gran# 5.3 1.5-7.2 Lymph# 2.1 0.7-4.9 Monocytes 0.8 10^3/uL 0.1 - 0.9 Gran% 65.5 42.2-75.2 Lymph% 25.4 20.5-51.1 Monocytes 0.8 % Low 1.7-9.3 Ua - Non Micro (a) 03/05/2006 Appearance CLEAR Color LT YELLOW Glucose NEG Bilirubin NEG Ketones NEG SP Grav <=1.005 Blood NEG PH 6.0 Protein NEG Urobil 0.2 Nitrite NEG Leukocytes ([facility]/Centrex) NEG Laboratory test finding 06/15/2004 Comments CMP;URIC ACID;PHOS; Lipids; Iron 1 SEE RESULT BELOW Name: MAURICE MERCEDES : [address]: Rodriguez Dawn MD Acct: [id number] Unit: [id number] AGE: 62 Location: ED Re07/04/17 SEX: M Status: REG ER SPEC: [id number] SHARIF: 07/04/17-[address]: Rodriguez Dawn MD REQ: [id number] RECD: 07/04/17 STATUS: RES OTHR DR: Evens Paul MD _ SOURCE: WOUND SPDESC: ORDERED: Culture Stain Procedure Result Reported Site Wound/Misc Gram Stain Final 07/04/17- 1219 ML 2+ Neutrophils 1+ Epithelial Cells 1+ Gram Positive Cocci Wound/Misc Culture PENDING * ML - Main Lab . END OF REPORT DEPARTMENT OF PATHOLOGY, [address] [place] [address] Víctor Nye M.D. Director MIN # [id number] 2 SEE RESULT BELOW Name: MAURICE MERCEDES : [address]: Rodriguez Dawn MD Acct: [id number] Unit: [id number] AGE: 62 Location: ED Re07/04/17 SEX: M Status: DEP ER SPEC: [id number] SHARIF: 07/04/17-[address]: Rodriguez Dawn MD REQ: [id number] RECD: 07/04/17 STATUS: COMP [facility] DR: Evens Paul MD _ SOURCE: WOUND SPDESC: ORDERED: MRSA/SA SSTI, Culture Stain COMMENTS: Verbal to [id number] (ER) by [id number] at 1343 on 07/04/17. Results read back [...] CONTINUED ON NEXT PAGE DEPARTMENT OF PATHOLOGY, [address] [place] [address] Víctor Nye M.D. Director MIN # [id number] Patient: MAURICE MERCEDES [id number] (Continued) Specimen: [id number] Collected: 07/04/17 Received: 07/04/17-1131 (Continued) Procedure Result Reported Site Wound/Misc Culture Final (continued) 07/06/17- 1102 1. MRSA (continued) M.I.C. RX --------- ------ Rifampin <=0.5 S Tetracycline <=1 S Doxycycline - Deduced S * Minocycline - Deduced S Trimethoprim/Sulfamethoxazole <=10 S Vancomycin <=0.5 S Imipenem-Deduced R * Ampicillin/Sulbactam-Deduced R Cefazolin-Deduced R * These antibiotics are not available in the [facility] Contact the Microbiology Department for any additional antibiotic reporting. * ML - Main Lab . END OF REPORT DEPARTMENT OF PATHOLOGY, [address] [place] [address] Víctor Nye M.D. Director [facility] # [id number] 3 *Ascorbic acid is present which may interfere with detection of blood. 4 SEE RESULT BELOW Name: MAURICE MERCEDES : [address]: Rodriguez Dawn MD Acct: [id number] Unit: [id number] AGE: 62 Location: ED Re07/04/17 SEX: M Status: DEP ER SPEC: [id number] SHARIF: 07/04/[address] [facility] [address]: Rodriguez Dawn MD REQ: [id number] RECD: 07/04/17 STATUS: BHAVESH VASQUES DR: Evens Paul MD _ SOURCE: BLOOD,VENO SPDESC: ORDERED: Blood Cult Procedure Result Reported Site Aerobic Culture Bottle Final 07/09/17- 30 ML No Growth Day 5 Anaerobic Culture Bottle Final 07/09/17- 30 ML No Growth Day 5 * ML - Main Lab . END OF REPORT DEPARTMENT OF PATHOLOGY, [address] [place] [address] Víctor Nye M.D. Director [facility] # [id number] 5 SEE RESULT BELOW Name: MAURICE MERCEDES : [address]: Evens Paul MD Acct: [id number] Unit: [id number] AGE: 62 Location: [facility] Re03/08/17 SEX: M Status: REG REF SPEC: [id number] SHARIF: 03/08/171351 [facility] DR: Evens Paul MD REQ: [id number] RECD: 03/08/17 STATUS: COMP _ SOURCE: MISC SOURC SPDESC: ORDERED: Culture Stain COMMENTS: FASTING 8 HOUR 1culture swab [id number] Specimen Description left eye Procedure Result Reported [...] performed at Main Lab DEPARTMENT OF PATHOLOGY, [address] [place] [address] Víctor Nye M.D. Director MIN # [id number] Patient: MAURICE MERCEDES [id number] (Continued) Specimen: [id number] Collected: 03/08/17135 Received: 03/08/17 (Continued) Procedure Result Reported Site Wound/Misc Culture Final (continued) 03/10/17- 1015 1. MRSA (continued) M.I.C. RX --------- ------ * Minocycline - Deduced S Trimethoprim/Sulfamethoxazole <=10 S Vancomycin 1 S Imipenem-Deduced R * Ampicillin/Sulbactam-Deduced R Cefazolin-Deduced R * These antibiotics are not available in the [facility] Contact the Microbiology Department for any additional antibiotic reporting. * ML - MAIN LAB ([facility]) . END OF REPORT * ML=Testing performed at Main Lab DEPARTMENT OF PATHOLOGY, [address] [place] [address] Víctor Nye M.D. Director CLIA # [id number] 6 1 sst 7 Negative: < 0.8 Indeterminate: 0.8 - 0.9 Positive: > 0.9 The CDC recommends that a positive HCV antibody result be followed up with a HCV Nucleic Acid Amplification test (122309). 8 RESULTS VERIFIED BY REPEAT ANALYSIS 9 RESULTS VERIFIED BY REPEAT ANALYSIS 10 RESULTS VERIFIED BY REPEAT ANALYSIS 11 1 SST 12 Negative <1:80 Borderline 1:80 Positive >1:80 13 HLA-B*27 Negative HLA allele interpretation for all loci based on IMGT/HLA database version 3.21 HLA Lab CLIA ID Number [id number] This test was performed using PCR (Polymerase [...] are those recommended by CDC/ASTPHLD. p23=Osp C, j08=zunildsix Note: Sera from individuals with the following may cross react in the [place]yme Western Blot assays: other spirochetal diseases (periodontal disease, leptospirosis, relapsing fever, yaws, and pinta); connective autoimmune (Rheumatoid Arthritis and Systemic Lupus Erythematosus and also individuals with Antinuclear Antibody); other infections ([place] Spotted Fever; Paul-King Virus, and Cytomegalovirus). 18 [...] are those recommended by CDC/ASTPHLD. p23=Osp C, f62=eowywtrpy Note: Sera from individuals with the following may cross react in the [place]yme Western Blot assays: other spirochetal diseases (periodontal disease, leptospirosis, relapsing fever, yaws, and pinta); connective autoimmune (Rheumatoid Arthritis and Systemic Lupus Erythematosus and also individuals with Antinuclear Antibody); other infections ([place] Spotted Fever; Paul-King Virus, and Cytomegalovirus). 22 [...] 3-6 weeks post infection, then gradually decline. FDA currently advises that Western Blot testing be [...] 3-6 weeks post infection, then gradually decline. FDA currently advises that Western Blot testing be [...] are those recommended by CDC/ASTPHLD. p23=Osp C, i41=mqjscxdli . Note: Sera from individuals with the following may cross react in the [place]yme Western Blot assays: other spirochetal diseases (periodontal disease, leptospirosis, relapsing fever, yaws, and pinta); connective autoimmune (Rheumatoid Arthritis and Systemic Lupus Erythematosus and also individuals with Antinuclear Antibody); other infections ([place] Spotted Fever; Paul-King Virus, and Cytomegalovirus). . . 29 RESULT ALE'D 30 result ale'd 31 rare wbc, mod gram pos cocci 32 Beta-hemolytic Strep, not group A or B Predominating WOUND CULTURE Beta-hemolytic Strep, not group A or B Predominating 1 33 RESULT VERIFIED BY REPEAT ANALYSIS Procedures Date CPT Code Description Status 10/02/2016 14418 Electrocardiogram Complete Completed 07/25/2016 Colonoscopy Completed 03/03/2013 34901 Vision Test- screening test of visual acuity, Completed quantitative, bila 11/06/2012 67333 Pulse Oximetry Completed 02/12/2012 09124 Electrocardiogram Complete Completed 03/05/2006 19885 Electrocardiogram Complete Completed 03/20/2004 21599 Spirometry Completed Encounters Type Date Location Provider CPT E/M Dx Office Visit 07/06/2017 10:45a Main Office Geraldine Hutchins, [facility] 10339 N50.811 M79.674 M79.675 M10.00 Office Visit 06/14/2017 9:30a Main Office Maggy Baxter, [facility] 35660 J01.90 Office Visit 03/08/2017 9:10a Main Office Evens Paul M.D. 11686 L03.213 Office Visit 12/17/2016 1:10p Main Office Evens Paul M.D. 05834 J01.00 Office Visit 11/20/2016 11:00a Northeast Office Geraldine Hutchins, [facility] 65394 H01.005 H10.89 F52.21 Office Visit 10/02/2016 10:20a Northeast Office Evens Paul M.D. 22831 M10.9 I10 Z00.00 Z11.59 Office Visit 10/04/2015 10:20a Northeast Office Evens Paul M.D. 79115 J01.00 Office Visit 08/30/2015 8:10a Northeast Office Evens Paul M.D. 86919 Z00.00 I10 Z23 Office Visit 06/06/2015 3:10p Main Office Evens Paul M.D. 07158 M65.869 Office Visit 08/10/2014 10:20a Northeast Office Evens Paul M.D. 82919 V70.0 719.47 Office Visit 12/29/2013 8:30a Northeast Office Wallace Soto M.D. 99378 461.9 Office Visit 06/19/2013 4:20p Main Office Evens Paul M.D. 03974 782.1 Office Visit 05/08/2013 9:20a Main Office Evens Paul M.D. 79941 782.1 Office Visit 03/03/2013 9:20a Northeast Office Evens Paul M.D. 50419 v04.81 V70.0 599.72 V76.44 V72.0 V76.41 Office Visit 02/06/2013 3:10p Main Office Evens Paul M.D. 56683 686.8 Office Visit 11/06/2012 7:00p Main Office John Crain M.D. 67514 461.0 Office Visit 04/23/2012 12:20p Main Office Evnes Paul M.D. 11288 682.5 Office Visit 03/25/2012 9:20a Northeast Office Evens Paul M.D. 06279 401.1 Office Visit 02/12/2012 9:20a Northeast Office Evens Paul M.D. 60748 V70.0 599.72 Office Visit 08/29/2010 4:00p Northeast Office Evens Paul M.D. 44696 995.3 493.00 Office Visit 08/10/2009 12:20p Main Office Evens Paul M.D. 95025 719.47 Office Visit 01/18/2009 10:20a Northeast Office Evens Paul M.D. 46833 V70.0 Office Visit 09/29/2008 8:20p Main Office Evens Paul M.D. 39740 995.3 Office Visit 06/12/2007 2:00p Northeast Office Maggy Sahil [facility] 11283 461.9 Office Visit 02/12/2007 8:00p Main Office Evens Paul M.D. 17315 709.8 Office Visit 02/10/2007 9:50a Northeast Office John Crain M.D. 59739 709.8 Office Visit 04/24/2006 7:00p Main Office Evens Paul M.D. 54831 381.10 Office Visit 03/05/2006 3:20p Northeast Office Evens Paul M.D. 14789 791.4 V06.5 V70.0 790.21 272.0 V76.44 Office Visit 12/11/2005 8:15p Main Office ANTONIA Guzman 31393 493.90 Office Visit 03/20/2004 11:10a Main Office Eevns Paul M.D. 70966 493.90 Office Visit 06/14/2003 8:00p Main Office ANTONIA Guzman 78492 490 461.9 Plan of Care Future Appointment(s):07/12/2017 9:00 am - KISHA Shin at [facility] [id number]/19/2017 8:10 am - Evens Paul M.D. at [facility] [id number] - STEPHANIE ShinPN50.811 Right testicular painComments:wound healing beautifullysponge/dab with sterile water/betadine mixture ( approximately 1:10 betadineto water ratio) daily and then keep covered as you are doingcall CAMMIE if condition changes/worsens in any way, otherwise see you GiyevdC37.674 Pain in right toe(s)M79.675 Pain in left toe(s)M10.00 Idiopathic gout, unspecified siteAllComments:~B_~U_Medication Management~b_~u_ Patient Understands medications he 's taking? Yes No Are there Barriers to Adherence? Yes No Has the patient been asked about herbal supplements and therapies, and OTC meds? Yes No
--- OUTSIDE RECORDS SUMMARY | 2017-08-05 00:47 | XMS REPORT ---
:1955 External Reference #:[id number] Author Organization [facility] [employer] Address [address] [address] Phone [phone] Care Team Providers Name Role Phone Evens Paul MD Primary Care Physician Unavailable Payers Type Date Identification Numbers Payment Provider Subscriber Commercial Policy Number: [id number] [facility] [employer] Group Number: [id number] [id number] PayID: [id number] [place] [address] Problems Date Description Provider Status Onset: 07/08/2017 Idiopathic gout, right knee Young Clark MD Active Onset: 07/08/2017 Idiopathic gout, left ankle and foot Young Clark MD Active Onset: 07/08/2017 Idiopathic gout, right ankle and foot Young Clark MD Active Family History Date Family Member(s) Problem(s) Comments General Breast Cancer Social History Type Date Description Comments Lives With Spouse Lives With Negative For Female Partner ETOH Use Denies alcohol use Smoking Patient has never smoked Exercise Type/Frequency Does not exercise Allergies, Adverse Reactions, Alerts Date Description Reaction Status Severity Comments 08/26/2014 Latex active Medications Medication Date Status Form Strength Qnty SIG Indications Ordering Provider Naproxen 08/15/ Active Tablets 500mg 60tab 1 by M70.22 Og 2016 s mouth F twice a Jorge, day as MD needed pain Hydrochlorothiazide / Active Tablets 12.5mg 1 by Unknown 0000 mouth every day Singulair / Active Tablets 10mg 1 by Unknown 0000 mouth every day Proair HFA / Active Aerosol 108(90Bas 2 puffs Unknown 0000 e) by mcg/Act mouth every 4 hours as needed Centrum Adults / Active Tablets once a Unknown 0000 day Cephalexin / Active Capsules 500mg Unknown 0000 Hydrochlorothiazide / Active Capsules 12.5mg Breiman, 0000 MD Evens Simvastatin / Active Tablets 20mg Breiman, 0000 MD Evens Betamethasone / Active Cream 0.05% apply Unknown Dipropionate 0000 twice a day Dicyclomine HCL / Hx Solution 10mg/5ML Unknown - 2016 Medications Administered in Office Medication Date Status Form Strength Qnty SIG Indications Ordering Provider No Injection 08/16/19 Administered Injection Og F 17 MD Jorge Vital Signs Date Vital Result Comment 07/08/2017 Height 67 inches 5'7" Weight 204.00 lb BP Systolic 132 mmHg BP Diastolic 88 mmHg Respiratory Rate 16 /min Body Temperature 97.9 F Pain Level 1 BMI (Body Mass Index) 31.9 kg/m2 08/15/2016 Height 67 inches 5'7" Weight 212.00 lb Heart Rate 72 /min BP Systolic 133 mmHg BP Diastolic 78 mmHg Respiratory Rate 16 /min Body Temperature 98.8 F Pain Level 7 BMI (Body Mass Index) 33.2 kg/m2 08/26/2014 Height 68 inches 5'8" Weight 220.00 lb Heart Rate 83 /min BP Systolic 129 mmHg BP Diastolic 83 mmHg Pain Level 6 BMI (Body Mass Index) 33.4 kg/m2 Results Test Date Test Result H/L Range Note Body Fluid C&S 08/15/2016 Body Fluid Cult SEE RESULT BELOW 1, 2 Gram Stain Laboratory test 08/15/2016 Body Fluid Crystals Monsodium Urate 1, 3 finding Body Fluid Cell Count 08/15/2016 Body Fluid Source Synovial Fluid 1 Body Fluid Appearance Cloudy 1 Body Fluid Color Karol 1 Body Fluid Volume 2 mL 1 Body Fluid WBC 5847 /mcL 1, 4 Body Fluid RBC 58490 /mcL 1 Body Fluid Neutrophils 77 % 1 Body Fluid Band 1 % 1 Body Fluid Lymph 5 % 1 Body Fluid Lamar 17 % 1 Body Fluid Total Cells Counted 100 1 Body Fluid Comment (SEE NOTE) 1, 5 Fluid Reviewed By MD (SEE NOTE) 1, 6 Acid Fast Culture & 08/15/2016 Acid Fast Culture SEE RESULT BELOW 1 , 7 Smear Smear Laboratory test finding 08/15/2016 Anaerobic Culture SEE RESULT BELOW 1 , 8 Fungal Cult Other Sources SEE RESULT BELOW 1, 9 Laboratory test 08/15/2016 Fungal Cult Other SEE RESULT BELOW 1, 10 finding Sources Laboratory test 08/15/2016 Fungal Cult Other SEE RESULT BELOW 1, 11 finding Sources Laboratory test 08/15/2016 Mycobacterial Culture See Comment 1, 12 finding 1 [id number] 2 SEE RESULT BELOW Name: MAURICE MERCEDES : [address]: Og Patel MD Acct: [id number] Unit: [id number] AGE: 61 Location: [facility] Re08/15/16 SEX: M Status: REG REF SPEC: [id number] SHARIF: 08/15/16-[address] [facility] [address]: Og Patel MD REQ: [id number] RECD: 08/15/16 STATUS: COMP _ SOURCE: [facility]INT [facility]UI SPDESC: ORDERED: BF Cult/GS, MRSA/SA SSTI COMMENTS: [id number] Procedure Result Reported Site Body Fluid Gram Stain Final 08/16/16- 0752 ML 3+ Neutrophils 2+ Nucleated Cells No Organisms Seen Preparation By Cytospin Smear MANY CRYSTALS OBSERVED Body Fluid Culture Final 08/19/16- 0853 ML No Growth Day 4 MRSA/S. aureus SSTI PCR Final 08/16/16- 0054 ML Organism 1 MRSA NEGATIVE Organism 2 S.AUREUS NEGATIVE * ML - MAIN LAB ([facility]) . END OF REPORT * ML=Testing performed at Main Lab DEPARTMENT OF PATHOLOGY, [address] [place] [address] Víctor Nye M.D. Director [facility] # [id number] 3 Reviewed by Geraldine Sosa MD 4 -- REFERENCE VALUE -- Synovial: <150/mcL Peritoneal: <500/mcL Pleural: <500/mcL Pericardial: <500/mcL 5 Differential performed on concentrated smear. 6 Acute inflammation. Reviewed by Geraldine Sosa MD 7 SEE RESULT BELOW Name: MAURICE MERCEDES : [address]: Og Patel MD Acct: [id number] Unit: [id number] AGE: 61 Location: [facility] Re08/15/16 SEX: M Status: REG REF SPEC: [id number] SHARIF: 08/15/16-[address]: Og Patel MD REQ: [id number] RECD: 08/15/16 STATUS: RES _ SOURCE: BODY FLUID SPDESC: ORDERED: Anaerobic Cult, AFB Cult Smear COMMENTS: [id number] Procedure Result Reported Site Anaerobic Culture PENDING Acid Fast Stain - Direct Final 08/16/16- 1024 ML AFB Smear Result No Acid Fast Bacillus Present (Negative) Preparation By Cytospin Smear Due to limited sensitivity of the smear, results should be used as an adjunct in evaluating the patient's status and cultural examination is highly recommended for diagnosis. * ML - MAIN LAB ([facility]) . END OF REPORT * ML=Testing performed at Main Lab DEPARTMENT OF PATHOLOGY, [address] [place] [address] Víctor Nye M.D. Director [facility] # [id number] 8 SEE RESULT BELOW Name: MAURICE MERCEDES : [address]: Og Patel MD Acct: [id number] Unit: [id number] AGE: 61 Location: [facility] Re08/15/16 SEX: M Status: REG REF SPEC: [id number] SHARIF: 08/15/16-[address] [facility] [address]: Og Patel MD REQ: [id number] RECD: 08/15/16 STATUS: COMP _ SOURCE: BODY FLUID SPDESC: ORDERED: Anaerobic Cult, AFB Cult Smear COMMENTS: [id number] Procedure Result Reported Site Anaerobic Culture Final 08/19/16- 0853 ML No Growth Day 4 Acid Fast Stain - Direct Final 08/16/16- 1024 ML AFB Smear Result No Acid Fast Bacillus Present (Negative) Preparation By Cytospin Smear Due to limited sensitivity of the smear, results should be used as an adjunct in evaluating the patient's status and cultural examination is highly recommended for diagnosis. * ML - MAIN LAB ([facility]) . END OF REPORT * ML=Testing performed at Main Lab DEPARTMENT OF PATHOLOGY, [address] [place] [address] Víctor Nye M.D. Director [facility] # [id number] 9 SEE RESULT BELOW Name: MAURICE MERCEDES : [address]: Og Patel MD Acct: [id number] Unit: [id number] AGE: 61 Location: [facility] Re08/15/16 SEX: M Status: REG REF SPEC: [id number] SHARIF: 08/15/16-[address] [facility] [address]: Og Patel MD REQ: [id number] RECD: 08/15/16 STATUS: RES _ SOURCE: [facility] [place] SPDESC: ORDERED: Fungal - Other COMMENTS: [id number] Procedure Result Reported Site Fungal Cult - Other Sources Preliminary 08/27/16- 110 ML No Growth Week 2 * ML - MAIN LAB ([facility]) . END OF REPORT * ML=Testing performed at Main Lab DEPARTMENT OF PATHOLOGY, [address] [place] [address] Víctor Nye M.D. Director [facility] # [id number] 10 SEE RESULT BELOW Name: MAURICE MERCEDES Neeraj : [address]: Og Patel MD Acct: [id number] Unit: [id number] AGE: 61 Location: [facility] Re08/15/16 SEX: M Status: REG REF SPEC: [id number] SHARIF: 08/15/16-[address] [facility] [address]: Og Patel MD REQ: [id number] RECD: 08/15/16 STATUS: RES _ SOURCE: [facility] [place] [facility] SPDESC: ORDERED: Fungal - Other COMMENTS: [id number] Procedure Result Reported Site Fungal Cult - Other Sources Preliminary 09/03/16- 1145 ML No Growth Week 3 * ML - MAIN LAB ([facility]) . END OF REPORT * ML=Testing performed at Main Lab DEPARTMENT OF PATHOLOGY, [address] [place] [address] Víctor Nye M.D. Director [facility] # [id number] 11 SEE RESULT BELOW Name: MAURICE MERCEDES : [address]: Og Patel MD Acct: [id number] Unit: [id number] AGE: 61 Location: [facility] Re08/15/16 SEX: M Status: REG REF SPEC: [id number] SHARIF: 08/15/16-[address]: Og Patel MD REQ: [id number] RECD: 08/15/16 STATUS: COMP _ [facility]: ORDERED: Fungal - Other COMMENTS: [id number] Procedure Result Reported Site Fungal Cult - Other Sources Final 09/10/16- 1037 ML No Growth Week 4 * ML - MAIN LAB ([facility]) . END OF REPORT * ML=Testing performed at Main Lab DEPARTMENT OF PATHOLOGY, [address] [place] [address] Víctor Nye M.D. Director [facility] # [id number] 12 SOURCE: SYNOVIAL FLUID, R ELBOW JF Mycobacteria specimen plated for culture, volume inadequate for optimal recovery. MYCOBACTERIAL CULTURE FINAL No growth after 60 days of incubation. Test Performed by: [facility] - [address], [place] [address] Procedures Date CPT Code Description Status 08/15/2016 56182 Inject/Drain Joint/Bursa Intermediate Completed Encounters Type Date Location Provider CPT E/M Dx Office Visit 08/15/2016 [facility] [place], [address] M70.22 1:30p Balwinder FRIAS M67.321 M25.521 M25.621 Office Visit 08/26/2014 3:00p [facility], [address] 719.47 Balwinder BenedictDRadha 729.5 Plan of Care 07/08/2017 - Young Clark, MDM10.071 Idiopathic gout, right ankle and footReferral:Evens Dixon MD,Follow up:Follow Up: As needed dr dixon gdkjyzctW71.072 Idiopathic gout, left ankle and footM10.061 Idiopathic gout, right knee
--- OUTSIDE RECORDS SUMMARY | 2017-08-05 00:48 | XMS REPORT ---
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 Evens Paul MD Primary Care Physician Unavailable Payers Type Date Identification Numbers Payment Provider Subscriber Commercial Effective: Policy Number: [id number] Acostaema Mercedes 2010 PayID: [id number] [place] [address] Problems Date Description Provider Status Onset: 02/12/2012 [...] Social History Type Date Description Comments 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 [place] Cigarette Use Nonsmoker Smoking Patient has never smoked Allergies, Adverse Reactions, Alerts Date Description Reaction Status Severity Comments 02/12/2012 NKDA active 10/04/2015 Seasonal active 10/04/2015 Animal Dander active Medications Medication Date Status Form Strength Qnty SIG Indications Ordering Provider Indomethacin 07/06 Active Capsules 50mg 60cap take 1 M79.674 s capsule by Liset, mouth INSTALLATION HELPER twice a day as needed With Food Clindamycin HCL 07/04 Active Capsules 300mg 40cap 1 by mouth s four times a day Tobrex 03/05 Active Solution 0.3% 5unit 2 drops Evens Keila s affected Josen eye(s) M.DRadha three a day x 5 days Patanol 11/20 Active Solution 0.1% 5unit 1 drop in s both eyes Liset, twice a INSTALLATION HELPER day as needed Viagra 11/20 Active Tablets 50mg 14tab 1 by mouth F52.21 Geraldine s 45 minutes [facility], prior to INSTALLATION HELPER sexual relations Sample Simvastatin 09/11 Active Tablets [...] e) m puffs Sahil, mcg/Act every 4 INSTALLATION HELPER hours as needed Centrum Ultra 00 Active Tablets daily Unknown Amoxicillin/Clavu 06/14 Hx Tablets 875-125mg 20tab 1 by mouth J01.90 Maggy lanate s twice a Sahil, - day with INSTALLATION HELPER 07/05 Keflex 03/08 Hx Capsules 500mg 30cap [...] qd [facility] Singulair 09/29 Hx Tablets 10mg 30tab take 1 Wallace Soto, s tablet by Lynn - mouth 08/09 every day Augmentin 06/12 Hx Tablets 500mg 20tab 1 po bid 461.9 Maggy s with food Sahil, - x 10 days INSTALLATION HELPER 09/29 Duricef 02/10 Hx Capsules 500mg 20cap 1 PO bid 709.8 John ARadha /2006 Aretha Mccauley M.D. 02/20 Amoxicillin 04/24 Hx Capsules 250mg 30cap 1 po tid Evens Pedraza Aretha Farias M.D. 02/10 Albuterol Inhaler 03/20 Hx 1unit 2 puffs Evens Pedraza /2003 s qid Aretha De Los Santos M.D. 09/29 Augmentin XR 06/14 Hx 1000mg as Tamanna directed Domingo - INSTALLATION HELPER-C 03/20 Singulair 06/14 Hx 10mg qd Tamanna R Domingo - INSTALLATION HELPER-C 03/20 Clarinex 06/14 Hx 5mg 30uni 1 qd prn Tamanna R ts Domingo - INSTALLATION HELPER-C 03/20 medicaid auth #[id number] Rhinocort Aqua 06/14 Hx Inhaler 1unit 1 spray in Tamanna R s [address], - nostril qd INSTALLATION HELPER-C 03/20 Robitussin ac 06/14 Hx Liq 4Oz 1/2-1 tsp Tamanna R /2003 po q4hs Domingo, - prn cough INSTALLATION HELPER-C 03/05 Doxycycline 05/31 Hx 100mg 20uni 1 PO bid Víctor Benedict Aretha Adam M.D. 06/10 Immunizations CPT Code Status Date Vaccine Lot # [id number] Given 08/30/2015 Zostivax [id number] 82386 Given 08/30/2015 Tdap Tetanus, W Pertussis [id number] 00904 Given 03/03/2013 DO Not Use Split Influenza Virus Vaccine [id number] Given 05/06/2012 DO Not Use Split Influenza Virus Vaccine [id number] Given 03/05/2006 Tetanus And Diptheria Adult Preservative Free [id number] >7Yrs Vital Signs Date Vital Result Comment 07/06/2017 BP Systolic 132 mmHg BP Diastolic [...] Color Yellow Urine Appearance Clear Urine Specific [place] 1.020 1.010-1.030 Urine pH 5.0 5-9 Urine [...] 4.1 x10^3/UL 1.5-7.2 Lymph# 1.7 x10^3/UL 0.7-4.9 [place]# 0.3 x10^3/UL 0.1-0.9 Gran % 66.0 % 42.2-75.2 Lymph % 28.6 % 20.5-51.1 [place]% 5.4 % 1.7-9.3 Laboratory test finding 10/02/2016 [...] 08/30/2015 Appearance clear Color yellow Glucose, Urine ([facility]CTX) neg Bilirubin neg Ketones neg SP Grav 1.015 Blood neg PH 7.5 Protein neg Urobil 0.2 Nitrite neg Leukocytes ([facility]Centrex) neg Comprehensive Metabolic Prof 08/30/2015 Sodium 139 [...] Appearance CLEAR Color YELLOW Glucose, Urine (a/[facility]CTX) NEG Bilirubin NEG Ketones NEG SP Grav 1.015 Blood NEG PH 8.0 Protein NEG Urobil 0.2 Nitrite NEG Leukocytes ([facility]Centrex) NEG Lipid Profile 08/10/2014 Cholesterol 203 mg/dL [...] 4.8 x10^3/UL 1.5-7.2 Lymph# 1.6 x10^3/UL 0.7-4.9 [place]# 0.5 x10^3/UL 0.1-0.9 Gran % 68.0 % 42.2-75.2 Lymph % 23.4 % 20.5-51.1 [place]% 8.6 % 1.7-9.3 Laboratory test finding 06/19/2013 [...] <0.91 index 0.00-0.90 19, 23 CBC Electronic ([facility]) 03/03/2013 WBC 6.0 [...] Hyaline - /Lpf Granular - /Lpf WBC ([facility],Centrex) - RBC 0-1 Mucus - /Lpf Epith [...] - /Lpf Granular - /Lpf WBC ([facility],Centrex) 0-1 RBC 1-3 Mucus - /Lpf Epith - /Lpf Bacteria - /Hpf Amorphous - /Lpf Crystals, Fluid ([facility]/CTX) - Z#Comments - CBC Electronic ([facility]) 02/12/2012 WBC 7.0 3.6-9.6 RBC 5.04 3.90-5.70 Hemoglobin ([facility]/CTX) 14.6 g/dL 12.1 - 17.2 Hematocrit ([facility]/CTX) 44.2 % 36.1 - 50.3 Platelets 204 [...] 01/18/2009 Appearance CLEAR Color YELLOW Glucose, Urine ([facility]/CTX) NEG Bilirubin NEG Ketones NEG SP Grav 1.015 Blood NEG PH 8.5 Protein NEG Urobil 0.2 Nitrite NEG Leukocytes ([facility]/Centrex) NEG Complete Blood Count 01/18/2009 WBC 7.5 [...] 98 mEq/L 94-112 Co2 26 21-32 Calcium (a/CMC/Centrex) 9.9 mg/dL 8.6-10.2 Total Protein 7.3 g/dL 6.3-8.1 Albumin (a/[facility]/Centrex) 4.3 3.8-5.5 Globulin 3.0 2.0-4.8 A/G Ratio ([facility]/Centrex) 1.4 0.6-2.2 Alk Phos (a) Male 78 U/L 22-95 Alt-M SGPT Male (a) 35 10-40 Ast Sgot 25 U/L 5-34 Bilirubin, Total 1.5 mg/dL High 0.2-1.3 33 Lipid Profile(a) 03/05/2006 Cholesterol 228 mg/dL High 120-200 Male ([facility]/Centrex) Triglyceride 115 mg/dL 30-200 HDL Cholesterol ([facility]) Male 38 mg/dL 30-70 LDL, Calculated (a/CMC) 167 CALC High 0-129 VLDL 23 0-50 HDL Risk Factor (a) 6.1 CALC 4.2-7.0 Laboratory test finding 03/05/2006 PSA (a/CMC/Centrex) 0.61 0.0-4.0 CBC ([place]) ([facility]) New [...] % Low 1.7-9.3 Ua - Non Micro ([facility]) 03/05/2006 Appearance CLEAR Color LT YELLOW Glucose NEG Bilirubin NEG Ketones NEG SP Grav <=1.005 Blood NEG PH 6.0 Protein NEG Urobil 0.2 Nitrite NEG Leukocytes ([facility]/Centrex) NEG Laboratory test finding 06/15/2004 Comments CMP;URIC ACID;PHOS; Lipids; Iron 1 SEE RESULT BELOW Name: MAURICE MERCEDES : [address]: Rodriguez Dawn MD Acct: [id number] Unit: [id number] AGE: 62 Location: ED Re07/04/17 SEX: M Status: REG ER SPEC: [id number] SHARIF: 07/04/17-[address]: Rodriguez Dawn MD REQ: [id number] RECD: 07/04/17 STATUS: RES [facility] DR: Evens Paul MD _ SOURCE: WOUND SPDESC: ORDERED: Culture Stain Procedure Result Reported Site Wound/Misc Gram Stain Final 07/04/17- 1219 ML 2+ Neutrophils 1+ Epithelial Cells 1+ Gram Positive Cocci Wound/Misc Culture PENDING * ML - Main Lab . END OF REPORT DEPARTMENT OF PATHOLOGY, [address] [place] [address] Víctor Nye M.D. Director [facility] # [id number] 2 SEE RESULT BELOW Name: MAURICE MERCEDES : [address]: Rodriguez Dawn MD Acct: [id number] Unit: [id number] AGE: 62 Location: ED Re07/04/17 SEX: M Status: DEP ER SPEC: [id number] SHARIF: 07/04/17-1099 [facility] DR: Rodriguez Dawn MD REQ: [id number] RECD: 07/04/17 STATUS: BHAVESH VASQUES DR: Evens Paul MD _ SOURCE: WOUND SPDESC: ORDERED: MRSA/SA SSTI, Culture Stain COMMENTS: Verbal to [id number] (ER) by [id number] at 1343 on 07/04/17. Results read back [...] CONTINUED ON NEXT PAGE DEPARTMENT OF PATHOLOGY, [address] [place] [address] Víctor Nye M.D. Director MIN # [id number] Patient: MAURICE MERCEDES [id number] (Continued) Specimen: [id number] Collected: 07/04/17 Received: 07/04/17 (Continued) Procedure Result Reported Site Wound/Misc Culture Final (continued) 07/06/171102 1. MRSA (continued) M.I.C. RX --------- ------ Rifampin <=0.5 S Tetracycline <=1 S Doxycycline - Deduced S * Minocycline - Deduced S Trimethoprim/Sulfamethoxazole <=10 S Vancomycin <=0.5 S Imipenem-Deduced R * Ampicillin/Sulbactam-Deduced R Cefazolin-Deduced R * These antibiotics are not available in the [facility] Formulary Contact the Microbiology Department for any additional antibiotic reporting. * - Main Lab . END OF REPORT DEPARTMENT OF PATHOLOGY, [address] [place] [address] Víctor Nye M.D. Director [facility] # [id number] 3 *Ascorbic acid is present which may interfere with detection of blood. 4 SEE RESULT BELOW Name: MAURICE MERCEDES : [address]: Rodriguez Dawn MD Acct: [id number] Unit: [id number] AGE: 62 Location: ED Re07/04/17 SEX: M Status: DEP ER SPEC: [id number] SHARIF: 07/04/17 [facility] DR: Rodriguez Dawn MD REQ: [id number] RECD: 07/04/17 STATUS: RES OTHR DR: Evens Paul MD _ SOURCE: BLOOD,VENO SPDESC: ORDERED: Blood Cult Procedure Result Reported Site Aerobic Culture Bottle Preliminary 07/06/17- 829 ML No Growth Day 2 Anaerobic Culture Bottle Preliminary 07/06/17- 827 ML No Growth Day 2 * ML - Main Lab . END OF REPORT DEPARTMENT OF PATHOLOGY, [address] [place] [address] Víctor Nye M.D. Director [facility] # [id number] 5 SEE RESULT BELOW Name: MAURICE MERCEDES : [address]: Evens Paul MD Acct: [id number] Unit: [id number] AGE: 62 Location: [facility] Re03/08/17 SEX: M Status: REG REF SPEC: [id number] SHARIF: 03/08/17-1351 [facility] DR: Evens Paul MD REQ: [id number] RECD: 03/08/17 STATUS: COMP _ SOURCE: MISC SOURC SPDESC: ORDERED: Culture Stain COMMENTS: FASTING 8 HOUR 1culture swab [id number] Specimen Description left eye Procedure Result Reported [...] performed at Main Lab DEPARTMENT OF PATHOLOGY, [address] [place] [address] Víctor Nye M.D. Director [facility] # [id number] Patient: MAURICE MERCEDES [id number] (Continued) Specimen: [id number] Collected: 03/08/17 Received: 03/08/17 (Continued) Procedure Result Reported Site Wound/Misc Culture Final (continued) 03/10/17- 1015 1. MRSA (continued) M.I.C. RX --------- ------ * Minocycline - Deduced S Trimethoprim/Sulfamethoxazole <=10 S Vancomycin 1 S Imipenem-Deduced R * Ampicillin/Sulbactam-Deduced R Cefazolin-Deduced R * These antibiotics are not available in the [facility] Formulary Contact the Microbiology Department for any additional antibiotic reporting. * ML - MAIN LAB ([facility]) . END OF REPORT * ML=Testing performed at Main Lab DEPARTMENT OF PATHOLOGY, [address] [place] [address] Víctor Nye M.D. Director CLIA # [id number] 6 1 sst 7 Negative: < 0.8 Indeterminate: 0.8 - 0.9 Positive: > 0.9 The CDC recommends that a positive HCV antibody result be followed up with a HCV Nucleic Acid Amplification test (459010). 8 RESULTS VERIFIED BY REPEAT ANALYSIS 9 RESULTS VERIFIED BY REPEAT ANALYSIS 10 RESULTS VERIFIED BY REPEAT ANALYSIS 11 1 SST 12 Negative <1:80 Borderline 1:80 Positive >1:80 13 HLA-B*27 Negative HLA allele interpretation for all loci based on IMGT/HLA database version 3.21 HLA Lab CLIA ID Number [id number] This test was performed using PCR (Polymerase [...] are those recommended by CDC/ASTPHLD. p23=Osp C, q71=ubcwcbzph Note: Sera from individuals with the following may cross react in the Lyme Western Blot assays: other spirochetal diseases (periodontal disease, leptospirosis, relapsing fever, yaws, and pinta); connective autoimmune (Rheumatoid Arthritis and Systemic Lupus Erythematosus and also individuals with Antinuclear Antibody); other infections ([place] Spotted Fever; Paul-King Virus, and Cytomegalovirus). 18 [...] are those recommended by CDC/ASTPHLD. p23=Osp C, i12=apfvcipuu Note: Sera from individuals with the following may cross react in the Lyme Western Blot assays: other spirochetal diseases (periodontal disease, leptospirosis, relapsing fever, yaws, and pinta); connective autoimmune (Rheumatoid Arthritis and Systemic Lupus Erythematosus and also individuals with Antinuclear Antibody); other infections ([place] Ar[place] Spotted Fever; Paul-King Virus, and Cytomegalovirus). 22 [...] are those recommended by CDC/ASTPHLD. p23=Osp C, j79=iulyzcnzp . Note: Sera from individuals with the following may cross react in the Lyme Western Blot assays: other spirochetal diseases (periodontal disease, leptospirosis, relapsing fever, yaws, and pinta); connective autoimmune (Rheumatoid Arthritis and Systemic Lupus Erythematosus and also individuals with Antinuclear Antibody); other infections ([place] Spotted Fever; Paul-King Virus, and Cytomegalovirus). . . 29 RESULT ALE'D 30 result ale'd 31 rare wbc, mod gram pos cocci 32 Beta-hemolytic Strep, not group A or B Predominating WOUND CULTURE Beta-hemolytic Strep, not group A or B Predominating 1 33 RESULT VERIFIED BY REPEAT ANALYSIS Procedures Date CPT Code Description Status 10/02/2016 08735 Electrocardiogram Complete Completed 07/25/2016 Colonoscopy Completed 03/03/2013 34091 Vision Test- screening test of visual acuity, Completed quantitative, bila 11/06/2012 30319 Pulse Oximetry Completed 02/12/2012 38110 Electrocardiogram Complete Completed 03/05/2006 89923 Electrocardiogram Complete Completed 03/20/2004 42412 Spirometry Completed Encounters Type Date Location Provider CPT E/M Dx Office Visit 06/14/2017 9:30a Main Office Maggy Baxter, [facility] 44619 J01.90 Office Visit 03/08/2017 9:10a Main Office Evens Paul 53848 L03.213 M.DRadha Office Visit 12/17/2016 1:10p Main Office Evens Paul 83120 J01.00 M.DRadha Office Visit 11/20/2016 11:00a Northeast Office Geraldine Hutchins, [facility] 30092 H01.005 H10.89 F52.21 Office Visit 10/02/2016 10:20a [facility] Office Evens Paul M.D. 21012 M10.9 I10 Z00.00 Z11.59 Office Visit 10/04/2015 10:20a [facility] Office Evens Paul M.D. 63952 J01.00 Office Visit 08/30/2015 8:10a [facility] Office Evens Paul M.D. 98166 Z00.00 I10 Z23 Office Visit 06/06/2015 3:10p Main Office Evens Paul M.D. 73245 M65.869 Office Visit 08/10/2014 10:20a [facility] Office Evens Paul M.D. 95054 V70.0 719.47 Office Visit 12/29/2013 8:30a [facility] Office Wallace Soto M.D. 61173 461.9 Office Visit 06/19/2013 4:20p Main Office Evens Paul M.D. 69576 782.1 Office Visit 05/08/2013 9:20a Main Office Evens Paul M.D. 81340 782.1 Office Visit 03/03/2013 9:20a [facility] Office Evens Paul M.D. 18294 v04.81 V70.0 599.72 V76.44 V72.0 V76.41 Office Visit 02/06/2013 3:10p Main Office Evens Paul M.D. 97135 686.8 Office Visit 11/06/2012 7:00p Main Office John Crain M.D. 20267 461.0 Office Visit 04/23/2012 12:20p Main Office Evens Paul M.D. 07228 682.5 Office Visit 03/25/2012 9:20a [facility] Office Evens Paul M.D. 54270 401.1 Office Visit 02/12/2012 9:20a [facility] Office Evens Paul M.D. 70628 V70.0 599.72 Office Visit 08/29/2010 4:00p [facility] Office Evens Paul M.D. 98945 995.3 493.00 Office Visit 08/10/2009 12:20p Main Office Evens Paul M.D. 96708 719.47 Office Visit 01/18/2009 10:20a [facility] Office Evens Paul M.D. 49861 V70.0 Office Visit 09/29/2008 8:20p Main Office Evens Paul M.D. 98544 995.3 Office Visit 06/12/2007 2:00p Northeast Office KISHA Mason 08821 461.9 Office Visit 02/12/2007 8:00p Main Office Evens Paul M.D. 24766 709.8 Office Visit 02/10/2007 9:50a [facility] Office John Crain M.D. 62360 709.8 Office Visit 04/24/2006 7:00p Main Office Evens Paul M.D. 06294 381.10 Office Visit 03/05/2006 3:20p [facility] Office Evens Paul M.D. 04779 791.4 V06.5 V70.0 790.21 272.0 V76.44 Office Visit 12/11/2005 8:15p Main Office ANTONIA Guzman 15627 493.90 Office Visit 03/20/2004 11:10a Main Office Evens Paul M.D. 28477 493.90 Office Visit 06/14/2003 8:00p Main Office ANTONIA Guzman 86565 490 461.9 Plan of Care Future Appointment(s):11/19/2017 8:10 am - Evens Paul M.D. at [facility]07/06/2017 - Geraldine Maldonadobhart, FNPN50.811 Right testicular painFollow up:ok to shower, gentle cares of affected area, avoid irritants/ harsh cleansers call CAMMIE if conditionchanges/worsens in any wayM79.674 Pain in right toe(s)New Medication:Indomethacin 50 mgM79.675 Pain in left toe(s)M10.00 Idiopathic gout, unspecified siteComments:google dietary modifiications for goutwe may want to talk about you going on a urate lowering medication every day ; I would want to do some urine testing firstget through this flare firstAllComments:~B_~U_Medication Management~b_~u_ Patient Understands medications he 's taking? Yes No Are there Barriers to Adherence? Yes No Has the patient been asked about herbal supplements and therapies, and OTC meds? Yes No
[2017-08-05 01:44] VITALS: BP 139/81
--- NOTE | 2017-08-05 01:48 | ED ---
Christiano Fowler Gabriel, scribed for James Stroud MD on 08/05/17 at 0058 . Respiratory - HPI Summary HPI Summary: This patient is a 62 year old M presenting to [facility] accompanied by his with a chief complaint of asthma exacerbation for the past 3 days. In the last two days the patient states he has been using his inhaler more often, which improved his asthma. Patient reports racing heart and increased BP 200/91. Additionally he states he is anxious and is having concerns about his heart. Hx HTN on medications. - History of Current Complaint Chief Complaint: EDAsthma Stated Complaint: SOB Time Seen by Provider: 08/05/17 00:25 Hx Obtained From: Patient Onset/Duration: Lasting Days, Still Present Timing: Constant Initial Severity: Mild Current Severity: Mild Pain Intensity: 0 Alleviating Factor(s): Neb. Bronchodilators (Frequency Of Use) Associated Signs and Symptoms: Negative - Allergy/Home Medications Allergies/Adverse Reactions: Allergies Allergy/AdvReac Type Severity Reaction Status Date / Time No Known Allergies Allergy Verified 07/04/17 07:49 PMH/Surg Hx/FS Hx/Imm Hx Endocrine/Hematology History: Denies: Hx Diabetes Cardiovascular History: Reports: Hx Hypercholesterolemia, Hx Hypertension - ON MEDS Denies: Hx Pacemaker/ICD History: Denies: Hx Renal Disease Musculoskeletal History: Reports: Hx Gout Sensory History: Denies: Hx Hearing Aid Psychiatric History: Denies: Hx Panic Disorder Infectious Disease History: Yes - MRSA Infectious Disease History: Denies: Traveled Outside the [place] in Last 30 Days - Family History Known Family History: Negative: Diabetes, Other - NO HISTORY OF GOUT - Social History Lives: With Family Alcohol Use: Rare Substance Use Type: Reports: None Smoking Status (MU): Never Smoked Tobacco Review of Systems Cardiovascular: Other - increased BP Positive: Other - racing heart All Other Systems Reviewed And Are Negative: Yes Physical Exam - Summary Physical Exam Summary: VITAL SIGNS: Reviewed. GENERAL: Patient is a well-developed and nourished male who is lying comfortable in the stretcher. Patient is not in any acute respiratory distress. HEAD AND FACE: No signs of trauma. No ecchymosis, hematomas or skull depressions. No sinus tenderness. EYES: PERRLA, EOMI x 2, No injected conjunctiva, no nystagmus. EARS: Hearing grossly intact. Ear canals and tympanic membranes are within normal limits. MOUTH: Oropharynx within normal limits. NECK: Supple, trachea is midline, no adenopathy, no JVD, no carotid bruit, no c- spine tenderness, neck with full ROM. CHEST: Symmetric, no tenderness at palpation LUNGS: Clear to auscultation bilaterally. No wheezing or crackles. CVS: Regular rate and rhythm, S1 and S2 present, no murmurs or gallops appreciated. ABDOMEN: Soft, non-tender. No signs of distention. No rebound no guarding, and no masses palpated. Bowel sounds are normal. EXTREMITIES: FROM in all major joints, no edema, no cyanosis or clubbing. NEURO: Alert and oriented x 3. No acute neurological deficits. Speech is normal and follows commands. SKIN: Dry and warm Triage Information Reviewed: Yes Vital Signs On Initial Exam: Initial Vitals Temp Pulse Resp BP Pulse Ox 97.6 F 86 18 164/98 97 08/05/17 00:12 08/05/17 00:12 08/05/17 00:12 08/05/17 00:12 08/05/17 00:12 Vital Signs Reviewed: Yes Diagnostics - Vital Signs Vital Signs Temp Pulse Resp BP Pulse Ox 08/05/17 00:43 20 08/05/17 00:32 86 171/89 97 08/05/17 00:30 87 173/96 96 08/05/17 00:29 81 94 08/05/17 00:27 176/96 08/05/17 00:12 97.6 F 86 18 164/98 97 - Laboratory Lab Statement: Any lab studies that have been ordered have been reviewed, and results considered in the medical decision making process. Re-Evaluation - Re-Evaluation First Eval Re-Evaluation Time: 01:26 Change: Improved Comment: Pt is feeling better. Second Eval Re-Evaluation Time: 01:38 Change: Improved Comment: BP is 141/80 Disposition - Course Assessment/Plan: This patient is a 62 year old M presenting to [facility] accompanied by his with a chief complaint of asthma exacerbation for the past 3 days. In the last two days the patient states he has been using his inhaler more often, which improved his asthma. Patient reports racing heart and increased BP 200/91. Additionally he states he is anxious and is having concerns about his heart. Hx HTN on medications. In the ED course the patient was given xanax and clonidine. Dx hypertension. Patient will be discharged and follow up from PCP. The patient is agreeable with this plan. - Diagnoses Provider Diagnoses: Hypertension Discharge - Sign-Out/Discharge Documenting (check all that apply): Discharge - Discharge Plan Condition: Stable Disposition: HOME Patient Education Materials: Hypertension (ED) Referrals: Evens Paul MD [Primary Care Provider] - 2 Days Additional Instructions: RETURN TO THE ER FOR ANY NEW OR WORSENING SYMPTOMS - Billing Disposition and Condition Condition: STABLE Disposition: HOME The documentation as recorded by the Christiano dewey Gabriel accurately reflects the service I personally performed and the decisions made by , James Stroud MD.
== END 2017-08-05 02:08 | disposition home or self-care (01) ==
LOC: ED 00:08
DX: I10 Essential (primary) hypertension (principal); J45.909 Unspecified asthma, uncomplicated; E78.00 Pure hypercholesterolemia, unspecified; M10.9 Gout, unspecified; Z86.14 Personal history of Methicillin resistant Staphylococcus aureus infection
CPT/HCPCS: 99282; A9270-GY